=== PATIENT | male | born 1960 | race Two or more races ===

== ENCOUNTER 2021-01-21 08:05 | Inpatient (IN) | payer BC, MEDICARE ==
[2021-01-21] VITALS (9 sets, daily range): BP systolic 97–126; BP diastolic 47–81
[~2021-01-21] VITALS: Ht 165.1 cm; Wt 103.2 kg
[2021-01-21 08:43] LABS: BASO # 0.1 x10^3/uL (0.0-0.2); BASO % 2 % (0-3); EOS # 0.1 x10^3/uL (0.0-0.7); EOS % 1 % (0-3); HEMATOCRIT 22.1 % (39.0-53.0); LYMPH # 2.3 x10^3/uL (1.0-4.8); LYMPH % 46 % (24-48); MEAN CORPUSCULAR HEMOGLOBIN 22 pg (25-35); MEAN CORPUSCULAR HGB CONC 31 g/dL (31-37); MEAN CORPUSCULAR VOLUME 71 fL (79-100); MONO # 0.4 x10^3/uL (0.0-1.1); MONO % 8 % (0-9); NEUT # 2.1 x10^3/uL (1.8-7.7); NEUT % 42 % (31-73); PLATELET COUNT 195 x10^3/uL (140-400); RED CELL DISTRIBUTION WIDTH 22.9 % (11.5-14.5); WHITE BLOOD COUNT 4.9 x10^3/uL (4.0-11.0)
[2021-01-21 08:46] LABS: HEMOGLOBIN 6.8 g/dL (13.0-17.5)
--- NOTE | 2021-01-21 08:52 | ED.ADGEN ---
Past Medical History Past Medical History: Hypertension Additional Past Medical Histor: ptsd Past Surgical History: Knee Replacement, Other Additional Past Surgical Histo: hernia repair Smoking Status: Never Smoker Alcohol Use: Occasionally Drug Use: None General Adult EDM: Chief Complaint: NEURO SYMPTOMS/DEFICITS HPI: HPI: Patient is a 60 year old male coming in for lightheadedness right-sided numbness and weakness. Also complaining of lightheadedness. Last known normal was 2200 last night. About 10 hours prior to arrival. Patient states he drank alcohol last night but denies any drugs. Patient states he drinks every 3 to 4 days. Had a uncomplicated left total knee replacement done in September. Patient states he had a history of hypertension and does really sleep and losing weight and not had any problems anymore Review of Systems: Review of Systems: All other systems within normal limits except for as noted in the HPI Current Medications: Current Medications Medications (Trade) Dose Ordered Sig/Bharat Start Time Stop Time Status Last Admin Dose Admin Info (CONTRAST GIVEN -- Rx MONITORING) 1 each PRN DAILY PRN 01/21/21 09:00 01/23/21 08:59 Iohexol (Omnipaque 300 Mg/ml) 75 ml 1X ONCE 01/21/21 09:00 01/21/21 09:01 DC Allergies: Allergies: Allergies Coded Allergies Type Severity Reaction Last Updated Verified No Known Drug Allergies 12/04/13 No Physical Exam: PE: Constitutional: Well developed, well nourished, no acute distress, non-toxic appearance. [] HENT: Normocephalic, atraumatic, bilateral external ears normal, nose normal. [] Eyes: PERRLA, conjunctiva normal, no discharge. [] Neck: No rigidity, supple, no stridor. [] Cardiovascular: Regular rate and rhythm, brisk cap refill [] Lungs & Thorax: Non labored symmetric respirations, no tachypnea or respiratory distress [] Abdomen: Soft, nondistended. Skin: Warm, dry, no erythema, no rash. [] Back: Unremarkable Extremities: No deformities, range of motion grossly intact, no lower extremity edema [] Neurologic: Alert and oriented X 3, decreased sensation on right upper and lower extremity. Slight droop of right lip with smiling. No pronator drift, tremors with holding hands up. Psychologic: Affect normal, judgement normal, mood normal. [] Current Patient Data: Labs: Laboratory Tests Test 01/21/21 08:12 01/21/21 08:20 01/21/21 08:45 01/21/21 09:35 Glucose (Fingerstick) 204 mg/dL (70-99) H White Blood Count 4.9 x10^3/uL (4.0-11.0) Red Blood Count 3.10 x10^6/uL (4.30-5.70) L Hemoglobin 6.8 g/dL (13.0-17.5) *L Hematocrit 22.1 % (39.0-53.0) L Mean Corpuscular Volume 71 fL (79-100) L Mean Corpuscular Hemoglobin 22 pg (25-35) L Mean Corpuscular Hemoglobin Concent 31 g/dL (31-37) Red Cell Distribution Width 22.9 % (11.5-14.5) H Platelet Count 195 x10^3/uL (140-400) Neutrophils (%) (Auto) 42 % (31-73) Lymphocytes (%) (Auto) 46 % (24-48) Monocytes (%) (Auto) 8 % (0-9) Eosinophils (%) (Auto) 1 % (0-3) Basophils (%) (Auto) 2 % (0-3) Neutrophils # (Auto) 2.1 x10^3/uL (1.8-7.7) Lymphocytes # (Auto) 2.3 x10^3/uL (1.0-4.8) Monocytes # (Auto) 0.4 x10^3/uL (0.0-1.1) Eosinophils # (Auto) 0.1 x10^3/uL (0.0-0.7) Basophils # (Auto) 0.1 x10^3/uL (0.0-0.2) Platelet Estimate Adequate (ADEQUATE) Anisocytosis Slight Prothrombin Time 15.0 SEC (11.7-14.0) H Prothrombin Time INR 1.2 (0.8-1.1) H Activated Partial Thromboplast Time 35 SEC (24-38) Sodium Level 145 mmol/L (136-145) Potassium Level 3.5 mmol/L (3.5-5.1) Chloride Level 105 mmol/L (98-107) Carbon Dioxide Level 26 mmol/L (21-32) Anion Gap 14 (6-14) Blood Urea Nitrogen 4 mg/dL (8-26) L Creatinine 0.9 mg/dL (0.7-1.3) Estimated GFR (Cockcroft-Gault) 86.4 BUN/Creatinine Ratio 4 (6-20) L Glucose Level 189 mg/dL (70-99) H Calcium Level 8.1 mg/dL (8.5-10.1) L Phosphorus Level 3.8 mg/dL (2.6-4.7) Magnesium Level 1.8 mg/dL (1.8-2.4) Total Bilirubin 1.2 mg/dL (0.2-1.0) H Aspartate Amino Transferase (AST) 67 U/L (15-37) H Alanine Aminotransferase (ALT) 43 U/L (16-63) Alkaline Phosphatase 63 U/L (46-116) Troponin I Quantitative < 0.017 ng/mL (0.000-0.055) JV-Ody-G-Type Natriuretic Peptide 52 pg/mL (0-124) Total Protein 8.1 g/dL (6.4-8.2) Albumin 4.1 g/dL (3.4-5.0) Albumin/Globulin Ratio 1.0 (1.0-1.7) Triglycerides Level 87 mg/dL (0-150) Cholesterol Level 154 mg/dL (0-200) LDL Cholesterol, Calculated 93 mg/dL (0-100) VLDL Cholesterol, Calculated 17 mg/dL (0-40) Non-HDL Cholesterol Calculated 110 mg/dL (0-129) HDL Cholesterol 44 mg/dL (40-60) Cholesterol/HDL Ratio 3.5 Ethyl Alcohol Level 340 mg/dL (0-10) H Ammonia 64 mcmol/L (11-34) H Urine Collection Type Unknown Urine Color Yellow Urine Clarity Clear Urine pH 6.0 (<5.0-8.0) Urine Specific [place] 1.025 (1.000-1.030) Urine Protein Negative mg/dL (NEG-TRACE) Urine Glucose (UA) Negative mg/dL (NEG) Urine Ketones (Stick) Negative mg/dL (NEG) Urine Blood Negative (NEG) Urine Nitrite Negative (NEG) Urine Bilirubin Negative (NEG) Urine Urobilinogen Dipstick 1.0 mg/dL (0.2 mg/dL) Urine Leukocyte Esterase Negative (NEG) Urine RBC 0 /HPF (0-2) Urine WBC 0 /HPF (0-4) Urine Squamous Epithelial Cells Occ /LPF Urine Bacteria 0 /HPF (0-FEW) Urine Hyaline Casts Occasional /HPF Urine Mucus Slight /LPF Urine Opiates Screen Neg (NEG) Urine Methadone Screen Neg (NEG) Urine Barbiturates Neg (NEG) Urine Phencyclidine Screen Neg (NEG) Urine Amphetamine/Methamphetamine Neg (NEG) Urine Benzodiazepines Screen Neg (NEG) Urine Cocaine Screen Neg (NEG) Urine Cannabinoids Screen Neg (NEG) Urine Ethyl Alcohol Pos (NEG) Laboratory Tests 01/21/21 08:20 Laboratory Tests 01/21/21 08:20 Vital Signs: Vital Signs Date Time Temp Pulse Resp B/P (MAP) Pulse Ox O2 Delivery O2 Flow Rate FiO2 01/21/21 09:25 97 16 117/65 (82) 91 Nasal Cannula 1.5 01/21/21 08:10 98.5 98.5 EKG: EKG: Sinus tachycardia, heart rate 108 bpm, left axis deviation, no ST ovation depression, no ectopy. [] Heart Score: C/O Chest Pain: No Risk Factors: Risk Factors: DM, Current or recent (<one month) smoker, HTN, HLP, family history of CAD, obesity. Risk Scores: Score 0 - 3: 2.5% MACE over next 6 weeks - Discharge Home Score 4 - 6: 20.3% MACE over next 6 weeks - Admit for Clinical Observation Score 7 - 10: 72.7% MACE over next 6 weeks - Early Invasive Strategies Radiology/Procedures: Radiology/Procedures: [facility] [address] [place], [place] [id number] IMAGING REPORT Signed PATIENT: KT SANCHEZ ACCOUNT: [id number] : 1960 LOCATION: ER AGE: 60 SEX: M EXAM STATUS: REG ER ORD. PHYSICIAN: DEVIKA ROMERO MD REASON: Right side of weakness PROCEDURE: CT ANGIOGRAPHY HEAD AND NECK EXAM: Head CT without contrast; CT angiogram of the head and neck with intravenous contrast. HISTORY: Right-sided weakness. TECHNIQUE: Computed tomographic images of the head were obtained without con trast. CT angiography of the head and neck was performed following the administration of contrast. Three-dimensional images were obtained. *One or more of the following individualized dose reduction techniques were utilized for this examination: 1. Automated exposure control. 2. Adjustment of the mA and/or kV according to patient size. 3. Use of iterative reconstruction technique. COMPARISON: None. FINDINGS: The noncontrast images of the head demonstrate no hemorrhage. There is no mass effect or midline shift. There is no hydrocephalus. The holman-white matter differentiation pattern is intact. The orbits and mastoid air cells are clear. There is no suspicious calvarial lesion. There is a mucous retention cyst within the left maxillary sinus. There are multiple periapical lucencies surrounding maxillary teeth due to dental disease. The angiographic images demonstrate a normal caliber aortic arch and standard arch branching pattern. The carotid bifurcations are widely patent. The internal carotid arteries are widely patent. The vertebral arteries are codominant and widely patent. There is no aneurysm, vascular malformation or suspicious enhancing lesion. There are incidental degenerative changes involving the cervical spine. This results in moderate right foraminal stenosis at C4-C5 and severe left foraminal and mild central canal stenosis at C5-C6. The lung apices are unremarkable. IMPRESSION: 1. No acute intracranial finding. MRI is more sensitive for acute infarction. 2. No evidence of large vessel occlusion or hemodynamically significant stenosis. Findings were discussed with Dr. Romero in the ED at 0850 hours on 01/21/2021. Electronically signed by: Janie Avila MD (01/21/2021 8:51 AM) [id number] DICTATED and SIGNED BY: JANIE AVILA MD DATE: 01/21/21 [id number] [][facility] [address] [place] [address] IMAGING REPORT Signed PATIENT: KT SANCHEZ ACCOUNT: [id number] : 1960 LOCATION: ER AGE: 60 SEX: M EXAM STATUS: REG ER ORD. PHYSICIAN: DEVIKA ROMERO MD REASON: Right side of weakness ED [phone] PROCEDURE: CT CODE STROKE HEAD WO EXAM: Head CT without contrast; CT angiogram of the head and neck with intravenous contrast. HISTORY: Right-sided weakness. TECHNIQUE: Computed tomographic images of the head were obtained without contrast. CT angiography of the head and neck was performed following the administration of contrast. Three-dimensional images were obtained. *One or more of the following individualized dose reduction techniques were utilized for this examination: 1. Automated exposure control. 2. Adjustment of the mA and/or kV according to patient size. 3. Use of iterative reconstruction technique. COMPARISON: None. FINDINGS: The noncontrast images of the head demonstrate no hemorrhage. There is no mass effect or midline shift. There is no hydrocephalus. The holman-white matter differentiation pattern is intact. The orbits and mastoid air cells are clear. There is no suspicious calvarial lesion. There is a mucous retention cyst within the left maxillary sinus. There are multiple periapical lucencies surrounding maxillary teeth due to dental disease. The angiographic images demonstrate a normal caliber aortic arch and standard arch branching pattern. The carotid bifurcations are widely patent. The internal carotid arteries are widely patent. The vertebral arteries are codominant and widely patent. There is no aneurysm, vascular malformation or suspicious enhancing lesion. There are incidental degenerative changes involving the cervical spine. This results in moderate right foraminal stenosis at C4-C5 and severe left foraminal and mild central canal stenosis at C5-C6. The lung apices are unremarkable. IMPRESSION: 1. No acute intracranial finding. MRI is more sensitive for acute infarction. 2. No evidence of large vessel occlusion or hemodynamically significant stenosis. Findings were discussed with Dr. Romero in the ED at 0850 hours on 01/21/2021. Electronically signed by: Janie Avila MD (01/21/2021 8:51 AM) [id number] DICTATED and SIGNED BY: JANIE AVILA MD DATE: 01/21/21 [id number] Course & Med Decision Making: Course & Med Decision Making Pertinent Labs and Imaging studies reviewed. (See chart for details) Discussed patient with Dr. Park, ollie TPA. We will also withhold aspirin due to low hemoglobin until bleeding source identified. [] Dragon Disclaimer: Dragon Disclaimer: This electronic medical record was generated, in whole or in part, using a voice recognition dictation system. Departure Departure Impression: Primary Impression: Hyperammonemia Additional Impressions: Alcohol intoxication Microcytic anemia Disposition: ADMITTED INPATIENT Admitting Physician: DASHA Condition: GUARDED Referrals: UNKNOWN PCP NAME (PCP) Problem Qualifiers DEVIKA ROMERO MD Jan 21, 2021 08:52
--- NOTE | 2021-01-21 08:53 | RAD ---
EXAM: Head CT without contrast; CT angiogram of the head and neck with intravenous contrast. HISTORY: Right-sided weakness. TECHNIQUE: Computed tomographic images of the head were obtained without contrast. CT angiography of the head and neck was performed following the administration of contrast. Three-dimensional images we re obtained. *One or more of the following individualized dose reduction techniques were utilized for this examina tion: 1. Automated exposure control. 2. Adjustment of the mA and/or kV according to patient size. 3. Use of iterative reconstruction technique. COMPARISON: None. FINDINGS: The noncontrast images of the head demonstrate no hemorrhage. There is no mass effect or mi dline shift. There is no hydrocephalus. The holman-white matter differentiation pattern is intact. The orbits and mastoid air cells are clear. There is no suspicious calvarial lesion. There is a mucous re tention cyst within the left maxillary sinus. There are multiple periapical lucencies surrounding max illary teeth due to dental disease. The angiographic images demonstrate a normal caliber aortic arch and standard arch branching pattern. The carotid bifurcations are widely patent. The internal carotid arteries are widely patent. The hayden tebral arteries are codominant and widely patent. There is no aneurysm, vascular malformation or susp icious enhancing lesion. There are incidental degenerative changes involving the cervical spine. This results in moderate righ t foraminal stenosis at C4-C5 and severe left foraminal and mild central canal stenosis at C5-C6. The lung apices are unremarkable. IMPRESSION: 1. No acute intracranial finding. MRI is more sensitive for acute infarction. 2. No evidence of large vessel occlusion or hemodynamically significant stenosis. Findings were discussed with Dr. Heaton in the ED at 0850 hours on 01/21/2021. Electronically signed by: Janie Plascencia MD (01/21/2021 8:51 AM) [id number]
[2021-01-21] MEDS ORDERED: IOHEXOL 300 MG/ML 100ML VIAL. IV ONE (09:00)
[2021-01-21] MEDS ORDERED: CONTRAST GIVEN. MC PRN (09:00)
[2021-01-21 09:33] LABS: CALCIUM 8.1 mg/dL (8.5-10.1); CREATININE 0.9 mg/dL (0.7-1.3); GFR 86.4; POTASSIUM 3.5 mmol/L (3.5-5.1)
[2021-01-21 09:37] LABS: ALBUMIN 4.1 g/dL (3.4-5.0); MAGNESIUM 1.8 mg/dL (1.8-2.4); PHOSPHORUS 3.8 mg/dL (2.6-4.7); TOTAL BILIRUBIN 1.2 mg/dL (0.2-1.0); TOTAL PROTEIN 8.1 g/dL (6.4-8.2)
[2021-01-21 09:45] LABS: BILIRUBIN,URINE NEGATIVE (NEG); CLARITY,URINE CLEAR; COLOR,URINE YELLOW; NITRITE,URINE NEGATIVE (NEG); PROTEIN,URINE NEGATIVE (NEG-TRACE)
[2021-01-21 09:52] LABS: AMPHETAMINE/METHAMPHETAMINE NEG (NEG); BARBITURATES NEG (NEG); BENZODIAZEPINES NEG (NEG); CANNABINOIDS NEG (NEG); COCAINE NEG (NEG); METHADONE NEG (NEG); OPIATES NEG (NEG); PHENCYCLIDINE NEG (NEG)
[2021-01-21] MEDS ORDERED: MULTIVIT INFUSN,ADULT 4,VIT K 10 ML, THIAMINE INJ 100 MG, FOLIC ACID INJ 1 MG in IV NOR... IV ONE (10:00)
[2021-01-21 10:01] LABS: BACTERIA,URINE 0 /HPF (0-FEW); HYALINE CASTS, URINE OCCASIONAL /HPF; RBC,URINE 0 /HPF (0-2); WBC,URINE 0 /HPF (0-4)
[2021-01-21] MEDS ORDERED: ACETAMINOPHEN 325 MG TABLET. PO PRN ×2 (10:30→12:15)
[2021-01-21 10:40] LABS: FECAL OB PT NEGATIVE (NEG)
[2021-01-21 10:56] LABS: ANISOCYTOSIS SLIGHT; PLT ESTIMATE ADEQUATE (ADEQUATE)
[2021-01-21] MEDS ORDERED: IV NORMAL SALINE 1000ML BAG 1,000 ML IV ONE (12:15)
[2021-01-21 12:34] LABS: CHOLESTEROL/HDL RATIO 3.5
--- NOTE | 2021-01-21 15:04 | PDOC2 ---
NEUROLOGY CONSULT Date of Service DOS: DATE: 01/21/21 TIME: 14:59 Reason for Consult Reason for Consult: Stroke Referring Physician Referring Physician: Dr. Salgado Source Source: Caregiver (Girlfriend), Chart review, Patient History of Present Illness History of Present Illness The patient is a 60-year-old right-handed male who woke up this morning with light headedness and right numbness and weakness. Last known normal was 2200 last night. He drinks alcohol every day. He has never had a stroke, seizure, or head injury. 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, no tobacco or street drugs, has a girlfriend/significant other Current Medications Current Medications Current Medications Iohexol (Omnipaque 300 Mg/ml) 75 ml 1X ONCE IV ; Start 01/21/21 at 09:00; Stop 01/21/21 at 09:01; Status DC Info (CONTRAST GIVEN -- Rx MONITORING) 1 each PRN DAILY PRN MC SEE COMMENTS; Start 01/21/21 at 09:00; Stop 01/23/21 at 08:59 Multivitamins 10 ml/Thiamine HCl 100 mg/Folic Acid 1 mg/Sodium Chloride 1,011.2 ml @ 1,000.088 mls/hr 1X ONCE IV Last administered on 01/21/21at 10:23; Start 01/21/21 at 10:00; Stop 01/21/21 at 11:00; Status DC Ondansetron HCl (Zofran) 4 mg PRN Q8HRS PRN IV NAUSEA/VOMITING; Start 01/21/21 at 10:30; Stop 01/22/21 at 10:29 Acetaminophen (Tylenol) 650 mg PRN Q4HRS PRN PO FEVER > 100.3'F; Start 01/21/21 at 10:30; Stop 01/21/21 at 12:14; Status DC Lorazepam (Ativan Inj) 2 mg 1X ONCE IVP ; Start 01/21/21 at 12:15; Stop 01/21/21 at 12:16; Status DC Sodium Chloride 1,000 ml @ 1,000 mls/hr 1X ONCE IV Last administered on 01/21/21at 12:34; Start 01/21/21 at 12:15; Stop 01/21/21 at 13:14; Status DC Multivitamins (Thera M Plus) 1 tab DAILY PO ; Start 01/22/21 at 09:00 Folic Acid (Folic Acid) 1 mg DAILY PO ; Start 01/22/21 at 09:00 Thiamine Mononitrate (Vitamin B-1) 100 mg DAILY PO ; Start 01/22/21 at 09:00 Lorazepam (Ativan) 4 mg PRN Q1HR PRN PO For CIWA 8-14; Start 01/21/21 at 12:15 Lorazepam (Ativan Inj) 2 mg PRN Q1HR PRN IV For CIWA 8-14; Start 01/21/21 at 12:15 Acetaminophen (Tylenol) 650 mg PRN Q6HRS PRN PO MILD PAIN / TEMP > 100.3'F; Start 01/21/21 at 12:15 Allergies Allergies: Coded Allergies: No Known Drug Allergies (Unverified , 12/04/13) ROS Review of System Negative for fever, chills, weight loss, shortness of breath, chest pain, indigestion, hematochezia, melena, and dysuria. Full 14-point review of systems is negative. Physical Exam Physical Examination General: Well-developed, well-nourished male in no acute distress HEENT: Normocephalic andatraumatic. Temporal arteriespulsatile and nontender. Neck: Supple without bruit, no meningismus Musculoskeletal: Stability:see neurologic. Gait exam:see neurologic. Tone:see neurologic.Strength:see neurologic. Neurological: Mental Status:intact, orientation, memory, attention span/concentration, language, fund of knowledge normal. Cranial Nerves:Pupils equal and reactive to light, extraocular movements areintact, visual matamoros are full to confrontation. Facial sensation is normal. There is a slight right central facial weakness. Vestibulo-ocular reflex is intact. Palate elevates and tongue protrudes in midline. All other cranial related problems are negative except as mentioned before.Reflexes:2+ and symmetric with flexor plantar responses. Motor:4/5 right hemiparesis with normal tone and bulk. Coordination:Finger- nose finger and [id number] testing are normal. Rapid alternating movements and fine finger movements are intact. Gait:Normal, including tandem. Sensory:Normal pinprick, vibration, light touch, proprioception. Vitals VITALS Vital Signs Date Time Temp Pulse Resp B/P (MAP) Pulse Ox O2 Delivery O2 Flow Rate FiO2 01/21/21 11:12 98.6 108 24 97/53 98.6 01/21/21 10:31 96 Nasal Cannula 1.5 Labs Labs Laboratory Tests Test 01/21/21 08:12 01/21/21 08:20 01/21/21 08:45 01/21/21 09:35 Glucose (Fingerstick) 204 mg/dL (70-99) White Blood Count 4.9 x10^3/uL (4.0-11.0) Red Blood Count 3.10 x10^6/uL (4.30-5.70) Hemoglobin 6.8 g/dL (13.0-17.5) Hematocrit 22.1 % (39.0-53.0) Mean Corpuscular Volume 71 fL (79-100) Mean Corpuscular Hemoglobin 22 pg (25-35) Mean Corpuscular Hemoglobin Concent 31 g/dL (31-37) Red Cell Distribution Width 22.9 % (11.5-14.5) Platelet Count 195 x10^3/uL (140-400) Neutrophils (%) (Auto) 42 % (31-73) Lymphocytes (%) (Auto) 46 % (24-48) Monocytes (%) (Auto) 8 % (0-9) Eosinophils (%) (Auto) 1 % (0-3) Basophils (%) (Auto) 2 % (0-3) Neutrophils # (Auto) 2.1 x10^3/uL (1.8-7.7) Lymphocytes # (Auto) 2.3 x10^3/uL (1.0-4.8) Monocytes # (Auto) 0.4 x10^3/uL (0.0-1.1) Eosinophils # (Auto) 0.1 x10^3/uL (0.0-0.7) Basophils # (Auto) 0.1 x10^3/uL (0.0-0.2) Platelet Estimate Adequate (ADEQUATE) Anisocytosis Slight Prothrombin Time 15.0 SEC (11.7-14.0) Prothromb Time International Ratio 1.2 (0.8-1.1) Activated Partial Thromboplast Time 35 SEC (24-38) Sodium Level 145 mmol/L (136-145) Potassium Level 3.5 mmol/L (3.5-5.1) Chloride Level 105 mmol/L (98-107) Carbon Dioxide Level 26 mmol/L (21-32) Anion Gap 14 (6-14) Blood Urea Nitrogen 4 mg/dL (8-26) Creatinine 0.9 mg/dL (0.7-1.3) Estimated GFR (Cockcroft-Gault) 86.4 BUN/Creatinine Ratio 4 (6-20) Glucose Level 189 mg/dL (70-99) Calcium Level 8.1 mg/dL (8.5-10.1) Phosphorus Level 3.8 mg/dL (2.6-4.7) Magnesium Level 1.8 mg/dL (1.8-2.4) Total Bilirubin 1.2 mg/dL (0.2-1.0) Aspartate Amino Transf (AST/SGOT) 67 U/L (15-37) Alanine Aminotransferase (ALT/SGPT) 43 U/L (16-63) Alkaline Phosphatase 63 U/L (46-116) Troponin I Quantitative < 0.017 ng/mL (0.000-0.055) WP-Dny-D-Type Natriuretic Peptide 52 pg/mL (0-124) Total Protein 8.1 g/dL (6.4-8.2) Albumin 4.1 g/dL (3.4-5.0) Albumin/Globulin Ratio 1.0 (1.0-1.7) Triglycerides Level 87 mg/dL (0-150) Cholesterol Level 154 mg/dL (0-200) LDL Cholesterol, Calculated 93 mg/dL (0-100) VLDL Cholesterol, Calculated 17 mg/dL (0-40) Non-HDL Cholesterol Calculated 110 mg/dL (0-129) HDL Cholesterol 44 mg/dL (40-60) Cholesterol/HDL Ratio 3.5 Ethyl Alcohol Level 340 mg/dL (0-10) Ammonia 64 mcmol/L (11-34) Urine Collection Type Unknown Urine Color Yellow Urine Clarity Clear Urine pH 6.0 (<5.0-8.0) Urine Specific [place] 1.025 (1.000-1.030) Urine Protein Negative mg/dL (NEG-TRACE) Urine Glucose (UA) Negative mg/dL (NEG) Urine Ketones (Stick) Negative mg/dL (NEG) Urine Blood Negative (NEG) Urine Nitrite Negative (NEG) Urine Bilirubin Negative (NEG) Urine Urobilinogen Dipstick 1.0 mg/dL (0.2 mg/dL) Urine Leukocyte Esterase Negative (NEG) Urine RBC 0 /HPF (0-2) Urine WBC 0 /HPF (0-4) Urine Squamous Epithelial Cells Occ /LPF Urine Bacteria 0 /HPF (0-FEW) Urine Hyaline Casts Occasional /HPF Urine Mucus Slight /LPF Urine Opiates Screen Neg (NEG) Urine Methadone Screen Neg (NEG) Urine Barbiturates Neg (NEG) Urine Phencyclidine Screen Neg (NEG) Urine Amphetamine/Methamphetamine Neg (NEG) Urine Benzodiazepines Screen Neg (NEG) Urine Cocaine Screen Neg (NEG) Urine Cannabinoids Screen Neg (NEG) Urine Ethyl Alcohol Pos (NEG) Test 01/21/21 10:25 01/21/21 11:30 01/21/21 13:30 Stool Occult Blood Negative (NEG) Fibrinogen 246 mg/dL (200-440) Troponin I Quantitative < 0.017 ng/mL (0.000-0.055) Laboratory Tests Test 01/21/21 08:12 01/21/21 08:20 01/21/21 08:45 01/21/21 09:35 Glucose (Fingerstick) 204 mg/dL (70-99) White Blood Count 4.9 x10^3/uL (4.0-11.0) Red Blood Count 3.10 x10^6/uL (4.30-5.70) Hemoglobin 6.8 g/dL (13.0-17.5) Hematocrit 22.1 % (39.0-53.0) Mean Corpuscular Volume 71 fL (79-100) Mean Corpuscular Hemoglobin 22 pg (25-35) Mean Corpuscular Hemoglobin Concent 31 g/dL (31-37) Red Cell Distribution Width 22.9 % (11.5-14.5) Platelet Count 195 x10^3/uL (140-400) Neutrophils (%) (Auto) 42 % (31-73) Lymphocytes (%) (Auto) 46 % (24-48) Monocytes (%) (Auto) 8 % (0-9) Eosinophils (%) (Auto) 1 % (0-3) Basophils (%) (Auto) 2 % (0-3) Neutrophils # (Auto) 2.1 x10^3/uL (1.8-7.7) Lymphocytes # (Auto) 2.3 x10^3/uL (1.0-4.8) Monocytes # (Auto) 0.4 x10^3/uL (0.0-1.1) Eosinophils # (Auto) 0.1 x10^3/uL (0.0-0.7) Basophils # (Auto) 0.1 x10^3/uL (0.0-0.2) Platelet Estimate Adequate (ADEQUATE) Anisocytosis Slight Prothrombin Time 15.0 SEC (11.7-14.0) Prothromb Time International Ratio 1.2 (0.8-1.1) Activated Partial Thromboplast Time 35 SEC (24-38) Sodium Level 145 mmol/L (136-145) Potassium Level 3.5 mmol/L (3.5-5.1) Chloride Level 105 mmol/L (98-107) Carbon Dioxide Level 26 mmol/L (21-32) Anion Gap 14 (6-14) Blood Urea Nitrogen 4 mg/dL (8-26) Creatinine 0.9 mg/dL (0.7-1.3) Estimated GFR (Cockcroft-Gault) 86.4 BUN/Creatinine Ratio 4 (6-20) Glucose Level 189 mg/dL (70-99) Calcium Level 8.1 mg/dL (8.5-10.1) Phosphorus Level 3.8 mg/dL (2.6-4.7) Magnesium Level 1.8 mg/dL (1.8-2.4) Total Bilirubin 1.2 mg/dL (0.2-1.0) Aspartate Amino Transf (AST/SGOT) 67 U/L (15-37) Alanine Aminotransferase (ALT/SGPT) 43 U/L (16-63) Alkaline Phosphatase 63 U/L (46-116) Troponin I Quantitative < 0.017 ng/mL (0.000-0.055) GH-Uda-L-Type Natriuretic Peptide 52 pg/mL (0-124) Total Protein 8.1 g/dL (6.4-8.2) Albumin 4.1 g/dL (3.4-5.0) Albumin/Globulin Ratio 1.0 (1.0-1.7) Triglycerides Level 87 mg/dL (0-150) Cholesterol Level 154 mg/dL (0-200) LDL Cholesterol, Calculated 93 mg/dL (0-100) VLDL Cholesterol, Calculated 17 mg/dL (0-40) Non-HDL Cholesterol Calculated 110 mg/dL (0-129) HDL Cholesterol 44 mg/dL (40-60) Cholesterol/HDL Ratio 3.5 Ethyl Alcohol Level 340 mg/dL (0-10) Ammonia 64 mcmol/L (11-34) Urine Collection Type Unknown Urine Color Yellow Urine Clarity Clear Urine pH 6.0 (<5.0-8.0) Urine Specific [place] 1.025 (1.000-1.030) Urine Protein Negative mg/dL (NEG-TRACE) Urine Glucose (UA) Negative mg/dL (NEG) Urine Ketones (Stick) Negative mg/dL (NEG) Urine Blood Negative (NEG) Urine Nitrite Negative (NEG) Urine Bilirubin Negative (NEG) Urine Urobilinogen Dipstick 1.0 mg/dL (0.2 mg/dL) Urine Leukocyte Esterase Negative (NEG) Urine RBC 0 /HPF (0-2) Urine WBC 0 /HPF (0-4) Urine Squamous Epithelial Cells Occ /LPF Urine Bacteria 0 /HPF (0-FEW) Urine Hyaline Casts Occasional /HPF Urine Mucus Slight /LPF Urine Opiates Screen Neg (NEG) Urine Methadone Screen Neg (NEG) Urine Barbiturates Neg (NEG) Urine Phencyclidine Screen Neg (NEG) Urine Amphetamine/Methamphetamine Neg (NEG) Urine Benzodiazepines Screen Neg (NEG) Urine Cocaine Screen Neg (NEG) Urine Cannabinoids Screen Neg (NEG) Urine Ethyl Alcohol Pos (NEG) Test 01/21/21 10:25 01/21/21 11:30 01/21/21 13:30 Stool Occult Blood Negative (NEG) Fibrinogen 246 mg/dL (200-440) Troponin I Quantitative < 0.017 ng/mL (0.000-0.055) Images Images Head CT without contrast; CT angiogram of the head and neck with intravenous contrast. HISTORY: Right-sided weakness. TECHNIQUE: Computed tomographic images of the head were obtained without contrast. CT angiography of the head and neck was performed following the admin istration of contrast. Three-dimensional images were obtained. *One or more of the following individualized dose reduction techniques were utilized for this examination: 1. Automated exposure control. 2. Adjustment of the mA and/or kV according to patient size. 3. Use of iterative reconstruction technique. COMPARISON: None. FINDINGS: The noncontrast images of the head demonstrate no hemorrhage. There is no mass effect or midline shift. There is no hydrocephalus. The holman-white matter differentiation pattern is intact. The orbits and mastoid air cells are clear. There is no suspicious calvarial lesion. There is a mucous retention cyst within the left maxillary sinus. There are multiple periapical lucencies surrounding maxillary teeth due to dental disease. The angiographic images demonstrate a normal caliber aortic arch and standard arch branching pattern. The carotid bifurcations are widely patent. The internal carotid arteries are widely patent. The vertebral arteries are codominant and widely patent. There is no aneurysm, vascular malformation or suspicious enhancing lesion. There are incidental degenerative changes involving the cervical spine. This results in moderate right foraminal stenosis at C4-C5 and severe left foraminal and mild central canal stenosis at C5-C6. The lung apices are unremarkable. IMPRESSION: 1. No acute intracranial finding. MRI is more sensitive for acute infarction. 2. No evidence of large vessel occlusion or hemodynamically significant stenosis. Assessment/Plan Assessment/Plan Impression: Left hemispheric stroke, clinically small vessel Hypertension Severe anemia Recommendations: MRI of the brain Hold antiplatelet agents and anticoagulants pending work-up of the anemia Anemia work-up per internal medicine. Keep in mind hematological disorders that can cause strokes Rehabilitation modalities Check lipids, start statin depending on results Discussed with patient and his girlfriend Thank you for letting me help with the patient's care. NAN HERNANDEZ MD Jan 21, 2021 15:04
--- NOTE | 2021-01-21 15:40 | EKG ---
[facility] [address] [place] [address] Test Date: 2021-01-21 Test Time: 08:15:21 Pat Name: KT SANCHEZ Department: Room: Gender: M [employer]: : 1960 Requested By: DEVIKA ROMERO Order Number: [id number] Reading MD: Measurements Intervals [place] Rate: 108 P: -90 IL: 102 QRS: -10 QRSD: 90 T: -4 QT: 354 QTc: 478 Interpretive Statements SINUS TACHYCARDIA LEFTWARD AXIS OTHERWISE NORMAL ECG RI6.02 No previous ECG available for comparison
--- NOTE | 2021-01-21 16:12 | RAD ---
EXAM: Brain MRI without contrast. HISTORY: Cerebral infarction. Right-sided weakness. TECHNIQUE: Multiplanar, multisequence magnetic resonance imaging of the brain was performed without c ontrast. COMPARISON: 01/21/2021 FINDINGS: There is no restricted diffusion to suggest acute or subacute infarction. There is no susce ptibility effect to suggest hemorrhage. There is no mass effect or midline shift. There is no hydroce phalus. No suspicious white matter lesion is seen. The orbits are unremarkable. There are small left maxillary sinus mucous retention cysts. There is mild paranasal sinus because of thickening. The mast oid air cells are clear. There are normal flow voids within the cerebral vessels. There is no suspici ous calvarial lesion. IMPRESSION: No acute intracranial finding. Electronically signed by: Janie Plascencia MD (01/21/2021 4:10 PM) [id number]
[2021-01-21] MEDS: ONDANSETRON PF 4 MG/2 ML VIAL. IV PRN (16:24)
[2021-01-21] MEDS ORDERED: DULO20CA PO ×2 (16:30→20:43)
[2021-01-21] MEDS ORDERED: ZOLPIDEM 5 MG TABLET. PO PRN (17:30)
--- NOTE | 2021-01-21 17:41 | PDOC1 ---
History and Physical Date of Admission Date of Admission DATE: 01/21/21 TIME: 17:17 History of Present Illness History of Present Illness Mr. Ashton, is a 60 year old male admit with right hand and arm weakness with lightheadedness. his right arm was newly numb this AM, and he feels it is improving slowly. Patient states he drank alcohol last night, drinks every few days. He has HTn only, and feels normally well. He had some anxiety in the ER and tremor and wanted his home meds of ativan restarted, which he reported as a home med . he follows with a psychiatrist on the [place] side, anxiety, and he is retired from Past Medical History Cardiovascular: HTN GI: Other (Colon polyp) Psych: Other (PTSD) Past Surgical History Past Surgical History: Hernia Repair, Total knee replacement (Left) Social History Smoke: No ALCOHOL: heavy Drugs: None Current Problem List Problem List Problems Medical Problems: (1) Alcohol intoxication Status: Acute (2) Hyperammonemia Status: Acute (3) Microcytic anemia Status: Acute Current Medications Current Medications Current Medications Iohexol (Omnipaque 300 Mg/ml) 75 ml 1X ONCE IV ; Start 01/21/21 at 09:00; Stop 01/21/21 at 09:01; Status DC Info (CONTRAST GIVEN -- Rx MONITORING) 1 each PRN DAILY PRN MC SEE COMMENTS; Start 01/21/21 at 09:00; Stop 01/23/21 at 08:59 Multivitamins 10 ml/Thiamine HCl 100 mg/Folic Acid 1 mg/Sodium Chloride 1,011.2 ml @ 1,000.088 mls/hr 1X ONCE IV Last administered on 01/21/21at 10:23; Start 01/21/21 at 10:00; Stop 01/21/21 at 11:00; Status DC Ondansetron HCl (Zofran) 4 mg PRN Q8HRS PRN IV NAUSEA/VOMITING Last administered on 01/21/21at 16:24; Start 01/21/21 at 10:30; Stop 01/22/21 at 10:29 Acetaminophen (Tylenol) 650 mg PRN Q4HRS PRN PO FEVER > 100.3'F; Start 01/21/21 at 10:30; Stop 01/21/21 at 12:14; Status DC Lorazepam (Ativan Inj) 2 mg 1X ONCE IVP ; Start 01/21/21 at 12:15; Stop 01/21/21 at 12:16; Status DC Sodium Chloride 1,000 ml @ 1,000 mls/hr 1X ONCE IV Last administered on 01/21/21at 12:34; Start 01/21/21 at 12:15; Stop 01/21/21 at 13:14; Status DC Multivitamins (Thera M Plus) 1 tab DAILY PO ; Start 01/22/21 at 09:00 Folic Acid (Folic Acid) 1 mg DAILY PO ; Start 01/22/21 at 09:00 Thiamine Mononitrate (Vitamin B-1) 100 mg DAILY PO ; Start 01/22/21 at 09:00 Lorazepam (Ativan) 4 mg PRN Q1HR PRN PO For CIWA 8-14; Start 01/21/21 at 12:15 Lorazepam (Ativan Inj) 2 mg PRN Q1HR PRN IV For CIWA 8-14; Start 01/21/21 at 12:15 Acetaminophen (Tylenol) 650 mg PRN Q6HRS PRN PO MILD PAIN / TEMP > 100.3'F; Start 01/21/21 at 12:15 Active Scripts Active Reported Cymbalta (Duloxetine Hcl) 20 Mg Capsule.dr 20 Mg PO DAILY Allergies Allergies: Coded Allergies: No Known Drug Allergies (Unverified , 12/04/13) ROS General: No: Chills, Night Sweats, Fatigue, Malaise, Appetite, Other PSYCHOLOGICAL ROS: No: Anxiety, Behavioral Disorder, Concentration difficultie, Decreased libido, Depression, Disorientation, Hallucinations, Hostility, Ir ritablity, Memory difficulties, Mood Swings, Obsessive thoughts, Physical abuse, Sexual abuse, Sleep disturbances, Suicidal ideation, Other Eyes: No Blurry vision, No Decreased vision, No Double vision, No Dry eyes, No Excessive tearing, No Eye Pain, No Itchy Eyes, No Loss of vision, No Photophobia, No Scotomata, No Uses contacts, No Uses glasses, No Other HEENT: No: Heacaches, Visual Changes, Hearing change, Nasal congestion, Nasal discharge, Oral lesions, Sinus pain, Sore Throat, Epistaxis, Sneezing, Snoring, Tinnitus, Vertigo, Vocal changes, Other Respiratory: No: Cough, Hemoptysis, Orthopnea, Pleuritic Pain, Shortness of breath, SOB with excertion, Sputum Changes, Stridor, Tachypnea, Wheezing, Other Cardiovascular: No Chest Pain, No Palpitations, No Orthopnea, No Paroxysmal Noc. Dyspnea, No Edema, No Lt Headedness, No Other Gastrointestinal: Yes Nausea; No Vomiting, No Abdominal Pain, No Diarrhea, No Constipation, No Melena, No Hematochezia, No Other Genitourinary: No Dysuria, No Frequency, No Incontinence, No Hematuria, No Retention, No Discharge, No Urgency, No Pain, No Flank Pain, No Other, No , No , No , No , No , No , No Musculoskeletal: Yes Muscular Weakness; No Gait Disturbance, No Joint Pain, No Joint Stiffness, No Joint Swelling, No Muscle Pain, No Pain In:, No Swelling In:, No Other Neurological: Yes Numbness/Tingling; No Behavorial Changes, No Bowel/Bladder ControlChng, No Confusion, No Dizziness, No Gait Disturbance, No Headaches, No Impaired Coord/balance, No Memory Loss, No Seizures, No Speech Problems, No Tremors, No Visual Changes, No Weakness, No Other Skin: Yes Dry Skin; No Eczema, No Hair Changes, No Lumps, No Mole Changes, No Mottling, No Nail Changes, No Pruritus, No Rash, No Skin Lesion Changes, No Other, No Acne Physical Exam General: Alert, Oriented X3, Cooperative, No acute distress HEENT: Atraumatic, PERRLA, Mucous membr. moist/pink Lungs: Clear to auscultation Heart: no gallops, no murmurs Extremities: No cyanosis, No edema, Normal pulses Skin: No rashes, No significant lesion Neuro: Normal gait, Normal tone, Sensation intact Psych/Mental Status: Mental status NL, Mood NL Vitals Vitals Vital Signs Date Time Temp Pulse Resp B/P (MAP) Pulse Ox O2 Delivery O2 Flow Rate FiO2 01/21/21 16:43 Nasal Cannula 1.5 01/21/21 14:00 98 25 115/56 (75) 97 01/21/21 11:12 98.6 98.6 Labs Labs Laboratory Tests Test 01/21/21 08:12 01/21/21 08:20 01/21/21 08:45 01/21/21 09:35 Glucose (Fingerstick) 204 mg/dL (70-99) White Blood Count 4.9 x10^3/uL (4.0-11.0) Red Blood Count 3.10 x10^6/uL (4.30-5.70) Hemoglobin 6.8 g/dL (13.0-17.5) Hematocrit 22.1 % (39.0-53.0) Mean Corpuscular Volume 71 fL (79-100) Mean Corpuscular Hemoglobin 22 pg (25-35) Mean Corpuscular Hemoglobin Concent 31 g/dL (31-37) Red Cell Distribution Width 22.9 % (11.5-14.5) Platelet Count 195 x10^3/uL (140-400) Neutrophils (%) (Auto) 42 % (31-73) Lymphocytes (%) (Auto) 46 % (24-48) Monocytes (%) (Auto) 8 % (0-9) Eosinophils (%) (Auto) 1 % (0-3) Basophils (%) (Auto) 2 % (0-3) Neutrophils # (Auto) 2.1 x10^3/uL (1.8-7.7) Lymphocytes # (Auto) 2.3 x10^3/uL (1.0-4.8) Monocytes # (Auto) 0.4 x10^3/uL (0.0-1.1) Eosinophils # (Auto) 0.1 x10^3/uL (0.0-0.7) Basophils # (Auto) 0.1 x10^3/uL (0.0-0.2) Platelet Estimate Adequate (ADEQUATE) Anisocytosis Slight Prothrombin Time 15.0 SEC (11.7-14.0) Prothromb Time International Ratio 1.2 (0.8-1.1) Activated Partial Thromboplast Time 35 SEC (24-38) Sodium Level 145 mmol/L (136-145) Potassium Level 3.5 mmol/L (3.5-5.1) Chloride Level 105 mmol/L (98-107) Carbon Dioxide Level 26 mmol/L (21-32) Anion Gap 14 (6-14) Blood Urea Nitrogen 4 mg/dL (8-26) Creatinine 0.9 mg/dL (0.7-1.3) Estimated GFR (Cockcroft-Gault) 86.4 BUN/Creatinine Ratio 4 (6-20) Glucose Level 189 mg/dL (70-99) Calcium Level 8.1 mg/dL (8.5-10.1) Phosphorus Level 3.8 mg/dL (2.6-4.7) Magnesium Level 1.8 mg/dL (1.8-2.4) Total Bilirubin 1.2 mg/dL (0.2-1.0) Aspartate Amino Transf (AST/SGOT) 67 U/L (15-37) Alanine Aminotransferase (ALT/SGPT) 43 U/L (16-63) Alkaline Phosphatase 63 U/L (46-116) Troponin I Quantitative < 0.017 ng/mL (0.000-0.055) NI-Ath-N-Type Natriuretic Peptide 52 pg/mL (0-124) Total Protein 8.1 g/dL (6.4-8.2) Albumin 4.1 g/dL (3.4-5.0) Albumin/Globulin Ratio 1.0 (1.0-1.7) Triglycerides Level 87 mg/dL (0-150) Cholesterol Level 154 mg/dL (0-200) LDL Cholesterol, Calculated 93 mg/dL (0-100) VLDL Cholesterol, Calculated 17 mg/dL (0-40) Non-HDL Cholesterol Calculated 110 mg/dL (0-129) HDL Cholesterol 44 mg/dL (40-60) Cholesterol/HDL Ratio 3.5 Ethyl Alcohol Level 340 mg/dL (0-10) Ammonia 64 mcmol/L (11-34) Urine Collection Type Unknown Urine Color Yellow Urine Clarity Clear Urine pH 6.0 (<5.0-8.0) Urine Specific [place] 1.025 (1.000-1.030) Urine Protein Negative mg/dL (NEG-TRACE) Urine Glucose (UA) Negative mg/dL (NEG) Urine Ketones (Stick) Negative mg/dL (NEG) Urine Blood Negative (NEG) Urine Nitrite Negative (NEG) Urine Bilirubin Negative (NEG) Urine Urobilinogen Dipstick 1.0 mg/dL (0.2 mg/dL) Urine Leukocyte Esterase Negative (NEG) Urine RBC 0 /HPF (0-2) Urine WBC 0 /HPF (0-4) Urine Squamous Epithelial Cells Occ /LPF Urine Bacteria 0 /HPF (0-FEW) Urine Hyaline Casts Occasional /HPF Urine Mucus Slight /LPF Urine Opiates Screen Neg (NEG) Urine Methadone Screen Neg (NEG) Urine Barbiturates Neg (NEG) Urine Phencyclidine Screen Neg (NEG) Urine Amphetamine/Methamphetamine Neg (NEG) Urine Benzodiazepines Screen Neg (NEG) Urine Cocaine Screen Neg (NEG) Urine Cannabinoids Screen Neg (NEG) Urine Ethyl Alcohol Pos (NEG) Test 01/21/21 10:25 01/21/21 11:30 01/21/21 13:30 Stool Occult Blood Negative (NEG) Fibrinogen 246 mg/dL (200-440) Troponin I Quantitative < 0.017 ng/mL (0.000-0.055) Laboratory Tests Test 01/21/21 08:12 01/21/21 08:20 01/21/21 08:45 01/21/21 09:35 Glucose (Fingerstick) 204 mg/dL (70-99) White Blood Count 4.9 x10^3/uL (4.0-11.0) Red Blood Count 3.10 x10^6/uL (4.30-5.70) Hemoglobin 6.8 g/dL (13.0-17.5) Hematocrit 22.1 % (39.0-53.0) Mean Corpuscular Volume 71 fL (79-100) Mean Corpuscular Hemoglobin 22 pg (25-35) Mean Corpuscular Hemoglobin Concent 31 g/dL (31-37) Red Cell Distribution Width 22.9 % (11.5-14.5) Platelet Count 195 x10^3/uL (140-400) Neutrophils (%) (Auto) 42 % (31-73) Lymphocytes (%) (Auto) 46 % (24-48) Monocytes (%) (Auto) 8 % (0-9) Eosinophils (%) (Auto) 1 % (0-3) Basophils (%) (Auto) 2 % (0-3) Neutrophils # (Auto) 2.1 x10^3/uL (1.8-7.7) Lymphocytes # (Auto) 2.3 x10^3/uL (1.0-4.8) Monocytes # (Auto) 0.4 x10^3/uL (0.0-1.1) Eosinophils # (Auto) 0.1 x10^3/uL (0.0-0.7) Basophils # (Auto) 0.1 x10^3/uL (0.0-0.2) Platelet Estimate Adequate (ADEQUATE) Anisocytosis Slight Prothrombin Time 15.0 SEC (11.7-14.0) Prothromb Time International Ratio 1.2 (0.8-1.1) Activated Partial Thromboplast Time 35 SEC (24-38) Sodium Level 145 mmol/L (136-145) Potassium Level 3.5 mmol/L (3.5-5.1) Chloride Level 105 mmol/L (98-107) Carbon Dioxide Level 26 mmol/L (21-32) Anion Gap 14 (6-14) Blood Urea Nitrogen 4 mg/dL (8-26) Creatinine 0.9 mg/dL (0.7-1.3) Estimated GFR (Cockcroft-Gault) 86.4 BUN/Creatinine Ratio 4 (6-20) Glucose Level 189 mg/dL (70-99) Calcium Level 8.1 mg/dL (8.5-10.1) Phosphorus Level 3.8 mg/dL (2.6-4.7) Magnesium Level 1.8 mg/dL (1.8-2.4) Total Bilirubin 1.2 mg/dL (0.2-1.0) Aspartate Amino Transf (AST/SGOT) 67 U/L (15-37) Alanine Aminotransferase (ALT/SGPT) 43 U/L (16-63) Alkaline Phosphatase 63 U/L (46-116) Troponin I Quantitative < 0.017 ng/mL (0.000-0.055) PK-Bsq-N-Type Natriuretic Peptide 52 pg/mL (0-124) Total Protein 8.1 g/dL (6.4-8.2) Albumin 4.1 g/dL (3.4-5.0) Albumin/Globulin Ratio 1.0 (1.0-1.7) Triglycerides Level 87 mg/dL (0-150) Cholesterol Level 154 mg/dL (0-200) LDL Cholesterol, Calculated 93 mg/dL (0-100) VLDL Cholesterol, Calculated 17 mg/dL (0-40) Non-HDL Cholesterol Calculated 110 mg/dL (0-129) HDL Cholesterol 44 mg/dL (40-60) Cholesterol/HDL Ratio 3.5 Ethyl Alcohol Level 340 mg/dL (0-10) Ammonia 64 mcmol/L (11-34) Urine Collection Type Unknown Urine Color Yellow Urine Clarity Clear Urine pH 6.0 (<5.0-8.0) Urine Specific [place] 1.025 (1.000-1.030) Urine Protein Negative mg/dL (NEG-TRACE) Urine Glucose (UA) Negative mg/dL (NEG) Urine Ketones (Stick) Negative mg/dL (NEG) Urine Blood Negative (NEG) Urine Nitrite Negative (NEG) Urine Bilirubin Negative (NEG) Urine Urobilinogen Dipstick 1.0 mg/dL (0.2 mg/dL) Urine Leukocyte Esterase Negative (NEG) Urine RBC 0 /HPF (0-2) Urine WBC 0 /HPF (0-4) Urine Squamous Epithelial Cells Occ /LPF Urine Bacteria 0 /HPF (0-FEW) Urine Hyaline Casts Occasional /HPF Urine Mucus Slight /LPF Urine Opiates Screen Neg (NEG) Urine Methadone Screen Neg (NEG) Urine Barbiturates Neg (NEG) Urine Phencyclidine Screen Neg (NEG) Urine Amphetamine/Methamphetamine Neg (NEG) Urine Benzodiazepines Screen Neg (NEG) Urine Cocaine Screen Neg (NEG) Urine Cannabinoids Screen Neg (NEG) Urine Ethyl Alcohol Pos (NEG) Test 01/21/21 10:25 01/21/21 11:30 01/21/21 13:30 Stool Occult Blood Negative (NEG) Fibrinogen 246 mg/dL (200-440) Troponin I Quantitative < 0.017 ng/mL (0.000-0.055) VTE Prophylaxis Ordered VTE Prophylaxis Devices: No VTE Pharmacological Prophylaxi: No Assessment/Plan Assessment/Plan new right hand weakness, improving small left motor CVA, anemia, Microcytic, check Iron, retic, w/u hypercoag, cannot order Factor V leiden in hospital, will get outpatient, f/u If hgb ok, start lovenox and asa PT and OT and speech obese, BMI 38 anxiety disorder, on cymbalta, reports home ativan Alcohol abuse, acute intox on admit, Justifications for Admission Other Justification AARON MENDENHALL MD Jan 21, 2021 17:41
[2021-01-21] MEDS ORDERED: IRON SUCROSE COMPLEX 200 MG in IV NORMAL SALINE 100ML 100 ML IV ONE (18:00)
[2021-01-21 18:19] LABS: HEMATOCRIT 21.9 % (39.0-53.0); RED BLOOD COUNT 3.07 x10^6/uL (4.30-5.70); RED CELL DISTRIBUTION WIDTH 22.4 % (11.5-14.5); WHITE BLOOD COUNT 3.7 x10^3/uL (4.0-11.0)
[2021-01-21 18:33] LABS: HEMOGLOBIN 6.8 g/dL (13.0-17.5)
[2021-01-21] MEDS ORDERED: DIAZ5TAB4 PO (20:43)
[2021-01-21] MEDS: DULoxetine HCL 20 MG CAPSULE.DR PO SCH (22:56)
[2021-01-22 06:58] LABS: CALCIUM 7.9 mg/dL (8.5-10.1); CREATININE 0.7 mg/dL (0.7-1.3); GFR 115.4; POTASSIUM 3.2 mmol/L (3.5-5.1)
[2021-01-22 07:00] VITALS: BP 135/78
[2021-01-22 07:25] LABS: BASO % 1 % (0-3); EOS % 0 % (0-3); HEMATOCRIT 23.1 % (39.0-53.0); HEMOGLOBIN 7.2 g/dL (13.0-17.5); LYMPH # 1.1 x10^3/uL (1.0-4.8); LYMPH % 26 % (24-48); MEAN CORPUSCULAR HEMOGLOBIN 22 pg (25-35); MEAN CORPUSCULAR HGB CONC 31 g/dL (31-37); MEAN CORPUSCULAR VOLUME 72 fL (79-100); MONO # 0.5 x10^3/uL (0.0-1.1); MONO % 12 % (0-9); NEUT # 2.5 x10^3/uL (1.8-7.7); NEUT % 60 % (31-73); PLATELET COUNT 134 x10^3/uL (140-400); RED BLOOD COUNT 3.21 x10^6/uL (4.30-5.70); RED CELL DISTRIBUTION WIDTH 22.4 % (11.5-14.5); WHITE BLOOD COUNT 4.1 x10^3/uL (4.0-11.0)
[2021-01-22] MEDS: DULoxetine HCL 20 MG CAPSULE.DR PO SCH (08:15)
[2021-01-22] MEDS: ONDANSETRON PF 4 MG/2 ML VIAL. IV PRN (08:19)
[2021-01-22] MEDS ORDERED: DULoxetine HCL 20 MG CAPSULE.DR PO SCH (09:00)
[2021-01-22] MEDS ORDERED: THIAMINE 100 MG TABLET. PO SCH (09:00)
[2021-01-22] MEDS ORDERED: MULTIVITAMIN with MINERAL TABLET. PO SCH (09:00)
[2021-01-22] MEDS ORDERED: FOLIC ACID 1 MG TABLET. PO SCH (09:00)
[2021-01-22] MEDS ORDERED: POTASSIUM CHLORIDE 20 MEQ TABLET.ER. PO ONE (09:30)
[2021-01-22] MEDS ORDERED: FERROUS SULFATE 325 MG TABLET. PO SCH (09:30)
[2021-01-22] MEDS ORDERED: MAGNESIUM SULFATE 2GM 50 ML IV ONE (09:30)
--- NOTE | 2021-01-22 10:11 | NUR ---
SW following. Discussed with RN, pt from home, room air, cardiac diet. Neurology following. GI consulted. PT/OT/ST ordered. Pt got two units of blood last night. PAT consulted for ETOH use/abuse. SW will continue to follow.
--- NOTE | 2021-01-22 10:21 | PDOC ---
PROGRESS NOTES Date of Service DATE: 01/22/21 TIME: 10:16 Assessment Problems Medical Problems: (1) Alcohol intoxication Status: Acute (2) Hyperammonemia Status: Acute (3) Microcytic anemia Status: Acute Left hemispheric stroke, clinically small vessel, but MRI negative Hypertension Severe anemia Alcoholism Plan Hold antiplatelet agents and anticoagulants pending work-up of the anemia Anemia work-up per internal medicine. Keep in mind hematological disorders that can cause strokes Rehabilitation modalities Favorable lipid profile, hold on starting statin, especially since diagnosis of stroke is now doubted Await echocardiogram Aim for discharge as soon as today if no active bleeding Subjective No complaints Objective Vital Signs Date Time Temp Pulse Resp B/P (MAP) Pulse Ox O2 Delivery O2 Flow Rate FiO2 01/22/21 08:22 Room Air 01/22/21 07:00 98.6 90 18 135/78 (97) 97 98.6 01/21/21 16:43 1.5 Intake and Output 01/22/21 07:00 Intake Total 2871 ml Output Total 300 ml Balance 2571 ml Intake Oral 200 ml IV Total 2011 ml Blood Product IV Normal Saline Flush 660 ml Output Urine Total 300 ml PHYSICAL EXAM Alert. Oriented to time, place and person. PERRL. EOMI. CN: no focal findings. Muscle tone: normal. Muscle strength: 5-/5 right hemiparesis DTR: 2+ Plantar reflex: Flexor Gait: Normal. Sensory exam: no abnormal findings. No cerebellar signs elicited. Review of Relevant I have reviewed the following items diamond (where applicable) has been applied. Labs Laboratory Tests Test 01/21/21 08:12 01/21/21 08:20 01/21/21 08:45 01/21/21 09:35 Glucose (Fingerstick) 204 mg/dL (70-99) White Blood Count 4.9 x10^3/uL (4.0-11.0) Red Blood Count 3.10 x10^6/uL (4.30-5.70) Hemoglobin 6.8 g/dL (13.0-17.5) Hematocrit 22.1 % (39.0-53.0) Mean Corpuscular Volume 71 fL (79-100) Mean Corpuscular Hemoglobin 22 pg (25-35) Mean Corpuscular Hemoglobin Concent 31 g/dL (31-37) Red Cell Distribution Width 22.9 % (11.5-14.5) Platelet Count 195 x10^3/uL (140-400) Neutrophils (%) (Auto) 42 % (31-73) Lymphocytes (%) (Auto) 46 % (24-48) Monocytes (%) (Auto) 8 % (0-9) Eosinophils (%) (Auto) 1 % (0-3) Basophils (%) (Auto) 2 % (0-3) Neutrophils # (Auto) 2.1 x10^3/uL (1.8-7.7) Lymphocytes # (Auto) 2.3 x10^3/uL (1.0-4.8) Monocytes # (Auto) 0.4 x10^3/uL (0.0-1.1) Eosinophils # (Auto) 0.1 x10^3/uL (0.0-0.7) Basophils # (Auto) 0.1 x10^3/uL (0.0-0.2) Platelet Estimate Adequate (ADEQUATE) Anisocytosis Slight Prothrombin Time 15.0 SEC (11.7-14.0) Prothromb Time International Ratio 1.2 (0.8-1.1) Activated Partial Thromboplast Time 35 SEC (24-38) Sodium Level 145 mmol/L (136-145) Potassium Level 3.5 mmol/L (3.5-5.1) Chloride Level 105 mmol/L (98-107) Carbon Dioxide Level 26 mmol/L (21-32) Anion Gap 14 (6-14) Blood Urea Nitrogen 4 mg/dL (8-26) Creatinine 0.9 mg/dL (0.7-1.3) Estimated GFR (Cockcroft-Gault) 86.4 BUN/Creatinine Ratio 4 (6-20) Glucose Level 189 mg/dL (70-99) Calcium Level 8.1 mg/dL (8.5-10.1) Phosphorus Level 3.8 mg/dL (2.6-4.7) Magnesium Level 1.8 mg/dL (1.8-2.4) Total Bilirubin 1.2 mg/dL (0.2-1.0) Aspartate Amino Transf (AST/SGOT) 67 U/L (15-37) Alanine Aminotransferase (ALT/SGPT) 43 U/L (16-63) Alkaline Phosphatase 63 U/L (46-116) Troponin I Quantitative < 0.017 ng/mL (0.000-0.055) LC-Wdi-U-Type Natriuretic Peptide 52 pg/mL (0-124) Total Protein 8.1 g/dL (6.4-8.2) Albumin 4.1 g/dL (3.4-5.0) Albumin/Globulin Ratio 1.0 (1.0-1.7) Triglycerides Level 87 mg/dL (0-150) Cholesterol Level 154 mg/dL (0-200) LDL Cholesterol, Calculated 93 mg/dL (0-100) VLDL Cholesterol, Calculated 17 mg/dL (0-40) Non-HDL Cholesterol Calculated 110 mg/dL (0-129) HDL Cholesterol 44 mg/dL (40-60) Cholesterol/HDL Ratio 3.5 Ethyl Alcohol Level 340 mg/dL (0-10) Ammonia 64 mcmol/L (11-34) Urine Collection Type Unknown Urine Color Yellow Urine Clarity Clear Urine pH 6.0 (<5.0-8.0) Urine Specific [place] 1.025 (1.000-1.030) Urine Protein Negative mg/dL (NEG-TRACE) Urine Glucose (UA) Negative mg/dL (NEG) Urine Ketones (Stick) Negative mg/dL (NEG) Urine Blood Negative (NEG) Urine Nitrite Negative (NEG) Urine Bilirubin Negative (NEG) Urine Urobilinogen Dipstick 1.0 mg/dL (0.2 mg/dL) Urine Leukocyte Esterase Negative (NEG) Urine RBC 0 /HPF (0-2) Urine WBC 0 /HPF (0-4) Urine Squamous Epithelial Cells Occ /LPF Urine Bacteria 0 /HPF (0-FEW) Urine Hyaline Casts Occasional /HPF Urine Mucus Slight /LPF Urine Opiates Screen Neg (NEG) Urine Methadone Screen Neg (NEG) Urine Barbiturates Neg (NEG) Urine Phencyclidine Screen Neg (NEG) Urine Amphetamine/Methamphetamine Neg (NEG) Urine Benzodiazepines Screen Neg (NEG) Urine Cocaine Screen Neg (NEG) Urine Cannabinoids Screen Neg (NEG) Urine Ethyl Alcohol Pos (NEG) Test 01/21/21 10:25 01/21/21 11:30 01/21/21 13:30 01/21/21 18:00 Stool Occult Blood Negative (NEG) Fibrinogen 246 mg/dL (200-440) Iron Level 19 ug/dL (65-175) Total Iron Binding Capacity 437 ug/dL (250-450) Iron Saturation 4 % (15-34) Troponin I Quantitative < 0.017 ng/mL (0.000-0.055) White Blood Count 3.7 x10^3/uL (4.0-11.0) Red Blood Count 3.07 x10^6/uL (4.30-5.70) Hemoglobin 6.8 g/dL (13.0-17.5) Hematocrit 21.9 % (39.0-53.0) Mean Corpuscular Volume 71 fL (79-100) Mean Corpuscular Hemoglobin 22 pg (25-35) Mean Corpuscular Hemoglobin Concent 31 g/dL (31-37) Red Cell Distribution Width 22.4 % (11.5-14.5) Platelet Count 150 x10^3/uL (140-400) Erythrocyte Sedimentation Rate 17 (0-15) Absolute Reticulocyte Count 0.042 x10^6/uL (0.020-0.120) Percent Reticulocyte Count 1.4 % (0.5-2.3) Immature Reticulocyte Fraction 0.40 (0.20-0.60) Test 01/22/21 04:10 White Blood Count 4.1 x10^3/uL (4.0-11.0) Red Blood Count 3.21 x10^6/uL (4.30-5.70) Hemoglobin 7.2 g/dL (13.0-17.5) Hematocrit 23.1 % (39.0-53.0) Mean Corpuscular Volume 72 fL (79-100) Mean Corpuscular Hemoglobin 22 pg (25-35) Mean Corpuscular Hemoglobin Concent 31 g/dL (31-37) Red Cell Distribution Width 22.4 % (11.5-14.5) Platelet Count 134 x10^3/uL (140-400) Neutrophils (%) (Auto) 60 % (31-73) Lymphocytes (%) (Auto) 26 % (24-48) Monocytes (%) (Auto) 12 % (0-9) Eosinophils (%) (Auto) 0 % (0-3) Basophils (%) (Auto) 1 % (0-3) Neutrophils # (Auto) 2.5 x10^3/uL (1.8-7.7) Lymphocytes # (Auto) 1.1 x10^3/uL (1.0-4.8) Monocytes # (Auto) 0.5 x10^3/uL (0.0-1.1) Eosinophils # (Auto) 0.0 x10^3/uL (0.0-0.7) Basophils # (Auto) 0.0 x10^3/uL (0.0-0.2) Sodium Level 142 mmol/L (136-145) Potassium Level 3.2 mmol/L (3.5-5.1) Chloride Level 104 mmol/L (98-107) Carbon Dioxide Level 29 mmol/L (21-32) Anion Gap 9 (6-14) Blood Urea Nitrogen 3 mg/dL (8-26) Creatinine 0.7 mg/dL (0.7-1.3) Estimated GFR (Cockcroft-Gault) 115.4 Glucose Level 87 mg/dL (70-99) Calcium Level 7.9 mg/dL (8.5-10.1) Vitamin B12 Level 368 pg/mL (247-911) Thyroid Stimulating Hormone (TSH) 2.336 uIU/mL (0.358-3.74) Laboratory Tests Test 01/21/21 10:25 01/21/21 11:30 01/21/21 13:30 01/21/21 18:00 Stool Occult Blood Negative (NEG) Fibrinogen 246 mg/dL (200-440) Iron Level 19 ug/dL (65-175) Total Iron Binding Capacity 437 ug/dL (250-450) Iron Saturation 4 % (15-34) Troponin I Quantitative < 0.017 ng/mL (0.000-0.055) White Blood Count 3.7 x10^3/uL (4.0-11.0) Red Blood Count 3.07 x10^6/uL (4.30-5.70) Hemoglobin 6.8 g/dL (13.0-17.5) Hematocrit 21.9 % (39.0-53.0) Mean Corpuscular Volume 71 fL (79-100) Mean Corpuscular Hemoglobin 22 pg (25-35) Mean Corpuscular Hemoglobin Concent 31 g/dL (31-37) Red Cell Distribution Width 22.4 % (11.5-14.5) Platelet Count 150 x10^3/uL (140-400) Erythrocyte Sedimentation Rate 17 (0-15) Absolute Reticulocyte Count 0.042 x10^6/uL (0.020-0.120) Percent Reticulocyte Count 1.4 % (0.5-2.3) Immature Reticulocyte Fraction 0.40 (0.20-0.60) Test 01/22/21 04:10 White Blood Count 4.1 x10^3/uL (4.0-11.0) Red Blood Count 3.21 x10^6/uL (4.30-5.70) Hemoglobin 7.2 g/dL (13.0-17.5) Hematocrit 23.1 % (39.0-53.0) Mean Corpuscular Volume 72 fL (79-100) Mean Corpuscular Hemoglobin 22 pg (25-35) Mean Corpuscular Hemoglobin Concent 31 g/dL (31-37) Red Cell Distribution Width 22.4 % (11.5-14.5) Platelet Count 134 x10^3/uL (140-400) Neutrophils (%) (Auto) 60 % (31-73) Lymphocytes (%) (Auto) 26 % (24-48) Monocytes (%) (Auto) 12 % (0-9) Eosinophils (%) (Auto) 0 % (0-3) Basophils (%) (Auto) 1 % (0-3) Neutrophils # (Auto) 2.5 x10^3/uL (1.8-7.7) Lymphocytes # (Auto) 1.1 x10^3/uL (1.0-4.8) Monocytes # (Auto) 0.5 x10^3/uL (0.0-1.1) Eosinophils # (Auto) 0.0 x10^3/uL (0.0-0.7) Basophils # (Auto) 0.0 x10^3/uL (0.0-0.2) Sodium Level 142 mmol/L (136-145) Potassium Level 3.2 mmol/L (3.5-5.1) Chloride Level 104 mmol/L (98-107) Carbon Dioxide Level 29 mmol/L (21-32) Anion Gap 9 (6-14) Blood Urea Nitrogen 3 mg/dL (8-26) Creatinine 0.7 mg/dL (0.7-1.3) Estimated GFR (Cockcroft-Gault) 115.4 Glucose Level 87 mg/dL (70-99) Calcium Level 7.9 mg/dL (8.5-10.1) Vitamin B12 Level 368 pg/mL (247-911) Thyroid Stimulating Hormone (TSH) 2.336 uIU/mL (0.358-3.74) Medications Current Medications Iohexol (Omnipaque 300 Mg/ml) 75 ml 1X ONCE IV ; Start 01/21/21 at 09:00; Stop 01/21/21 at 09:01; Status DC Info (CONTRAST GIVEN -- Rx MONITORING) 1 each PRN DAILY PRN MC SEE COMMENTS; Start 01/21/21 at 09:00; Stop 01/23/21 at 08:59 Multivitamins 10 ml/Thiamine HCl 100 mg/Folic Acid 1 mg/Sodium Chloride 1,011.2 ml @ 1,000.088 mls/hr 1X ONCE IV Last administered on 01/21/21at 10:23; Start 01/21/21 at 10:00; Stop 01/21/21 at 11:00; Status DC Ondansetron HCl (Zofran) 4 mg PRN Q8HRS PRN IV NAUSEA/VOMITING Last administered on 01/22/21at 08:19; Start 01/21/21 at 10:30; Stop 01/22/21 at 10:29 Acetaminophen (Tylenol) 650 mg PRN Q4HRS PRN PO FEVER > 100.3'F; Start 01/21/21 at 10:30; Stop 01/21/21 at 12:14; Status DC Lorazepam (Ativan Inj) 2 mg 1X ONCE IVP ; Start 01/21/21 at 12:15; Stop 01/21/21 at 12:16; Status DC Sodium Chloride 1,000 ml @ 1,000 mls/hr 1X ONCE IV Last administered on 01/21/21at 12:34; Start 01/21/21 at 12:15; Stop 01/21/21 at 13:14; Status DC Multivitamins (Thera M Plus) 1 tab DAILY PO Last administered on 01/22/21at 08:15; Start 01/22/21 at 09:00 Folic Acid (Folic Acid) 1 mg DAILY PO Last administered on 01/22/21at 08:15; Start 01/22/21 at 09:00 Thiamine Mononitrate (Vitamin B-1) 100 mg DAILY PO Last administered on 01/22/21at 08:15; Start 01/22/21 at 09:00 Lorazepam (Ativan) 4 mg PRN Q1HR PRN PO For CIWA 8-14; Start 01/21/21 at 12:15 Lorazepam (Ativan Inj) 2 mg PRN Q1HR PRN IV For CIWA 8-14 Last administered on 01/21/21at 21:07; Start 01/21/21 at 12:15 Acetaminophen (Tylenol) 650 mg PRN Q6HRS PRN PO MILD PAIN / TEMP > 100.3'F; Start 01/21/21 at 12:15 Duloxetine HCl (Cymbalta) 20 mg DAILY PO ; Start 01/22/21 at 09:00; Stop 01/21/21 at 20:46; Status DC Zolpidem Tartrate (Ambien) 5 mg PRN QHS PRN PO INSOMNIA, MAY REPEAT IN 1HR; Start 01/21/21 at 17:30 Lorazepam (Ativan) 1 mg PRN Q6HRS PRN PO ANXIETY / AGITATION; Start 01/21/21 at 17:45 Iron Sucrose 200 mg/Sodium Chloride 110 ml @ 55 mls/hr 1X ONCE IV Last administered on 01/21/21at 17:57; Start 01/21/21 at 18:00; Stop 01/21/21 at 19:59; Status DC Duloxetine HCl (Cymbalta) 20 mg DAILY PO Last administered on 01/22/21at 08:15; Start 01/21/21 at 21:00 Potassium Chloride (Klor-Con) 40 meq 1X ONCE PO Last administered on 01/22/21at 09:36; Start 01/22/21 at 09:30; Stop 01/22/21 at 09:31; Status DC Magnesium Sulfate 50 ml @ 25 mls/hr 1X ONCE IV Last administered on 01/22/21at 09:37; Start 01/22/21 at 09:30; Stop 01/22/21 at 11:29 Ferrous Sulfate (Feosol) 325 mg DAILYWBKFT PO Last administered on 01/22/21at 09:36; Start 01/22/21 at 09:30 Active Scripts Active Reported Diazepam 5 Mg Tablet 5 Mg PO BID PRN Cymbalta (Duloxetine Hcl) 20 Mg Capsule.dr 20 Mg PO DAILY Vitals/I & O Vital Sign - Last 24 Hours 01/21/21 01/21/21 01/21/21 01/21/21 10:18 10:31 10:32 11:00 Temp 98.5 98.5 Pulse 106 102 104 98 Resp 23 16 22 B/P (MAP) 101/72 105/67 (80) 105/67 97/53 (68) Pulse Ox 96 90 O2 Delivery Nasal Cannula Nasal Cannula O2 Flow Rate 1.5 1.5 01/21/21 01/21/21 01/21/21 01/21/21 11:12 11:30 12:00 12:30 Temp 98.6 98.6 Pulse 108 106 104 96 Resp 27 B/P (MAP) 97/53 97/49 (65) 98/47 (64) 87/44 (58) Pulse Ox 93 95 96 O2 Delivery Nasal Cannula Nasal Cannula Nasal Cannula O2 Flow Rate 1.5 1.5 1.5 01/21/21 01/21/21 01/21/21 01/21/21 13:00 13:30 14:00 16:43 Pulse 95 92 98 Resp 25 25 B/P (MAP) 86/45 (59) 92/45 (61) 115/56 (75) Pulse Ox 95 98 97 O2 Delivery Nasal Cannula Nasal Cannula Nasal Cannula Nasal Cannula O2 Flow Rate 1.5 1.5 1.5 1.5 01/21/21 01/21/21 01/21/21 01/21/21 19:00 21:00 22:36 22:45 Temp 98.7 98.0 99.0 98.7 98.0 99.0 Pulse 95 94 95 Resp 18 21 B/P (MAP) 111/50 (70) 124/58 (80) 112/70 Pulse Ox 94 92 O2 Delivery Room Air Room Air Room Air 01/21/21 01/21/21 01/22/21 01/22/21 23:50 23:57 07:00 08:22 Temp 98.6 98.8 98.6 98.6 98.8 98.6 Pulse 93 86 90 Resp 18 B/P (MAP) 119/64 103/47 135/78 (97) Pulse Ox 97 O2 Delivery Room Air Room Air Intake and Output 01/21/21 01/21/21 01/22/21 15:00 23:00 07:00 Intake Total 2671 ml 200 ml Output Total 300 ml Balance 2671 ml 200 ml -300 ml Images Brain MRI without contrast. HISTORY: Cerebral infarction. Right-sided weakness. TECHNIQUE: Multiplanar, multisequence magnetic resonance imaging of the brain was performed without contrast. COMPARISON: 01/21/2021 FINDINGS: There is no restricted diffusion to suggest acute or subacute infarction. There is no susceptibility effect to suggest hemorrhage. There is no mass effect or midline shift. There is no hydrocephalus. No suspicious white matter lesion is seen. The orbits are unremarkable. There are small left maxillary sinus mucous retention cysts. There is mild paranasal sinus because of thickening. The mastoid air cells are clear. There are normal flow voids within the cerebral vessels. There is no suspicious calvarial lesion. IMPRESSION: No acute intracranial finding. Justicifation of Admission Dx: Justifications for Admission: Justification of Admission Dx: N/A Stroke - Ischemic: Stroke-Ischemic NAN HERNANDEZ MD Jan 22, 2021 10:21
--- NOTE | 2021-01-22 10:25 | PDOC3 ---
Discharge Summary Visit Information Date of Admission: Jan 21, 2021 Date of Discharge: Jan 22, 2021 Final Diagnosis clinical Left hemispheric stroke, small vessel on CT, MRI negative Hypertension obesity, BMI 38 Severe anemia, Hgb < 7, no blood product given, Iron deficiency anemnia, Alcoholism Problems Medical Problems: (1) Alcohol intoxication Status: Acute (2) Hyperammonemia Status: Acute (3) Microcytic anemia Status: Acute Brief Hospital Course Allergies Allergies Coded Allergies Type Severity Reaction Last Updated Verified No Known Drug Allergies 12/04/13 No Vital Signs Vital Signs Date Time Temp Pulse Resp B/P (MAP) Pulse Ox O2 Delivery O2 Flow Rate FiO2 01/22/21 08:22 Room Air 01/22/21 07:00 98.6 90 18 135/78 (97) 97 98.6 01/21/21 16:43 1.5 Lab Results Laboratory Tests Test 01/21/21 08:12 01/21/21 08:20 01/21/21 08:45 01/21/21 09:35 Glucose (Fingerstick) 204 mg/dL (70-99) White Blood Count 4.9 x10^3/uL (4.0-11.0) Red Blood Count 3.10 x10^6/uL (4.30-5.70) Hemoglobin 6.8 g/dL (13.0-17.5) Hematocrit 22.1 % (39.0-53.0) Mean Corpuscular Volume 71 fL (79-100) Mean Corpuscular Hemoglobin 22 pg (25-35) Mean Corpuscular Hemoglobin Concent 31 g/dL (31-37) Red Cell Distribution Width 22.9 % (11.5-14.5) Platelet Count 195 x10^3/uL (140-400) Neutrophils (%) (Auto) 42 % (31-73) Lymphocytes (%) (Auto) 46 % (24-48) Monocytes (%) (Auto) 8 % (0-9) Eosinophils (%) (Auto) 1 % (0-3) Basophils (%) (Auto) 2 % (0-3) Neutrophils # (Auto) 2.1 x10^3/uL (1.8-7.7) Lymphocytes # (Auto) 2.3 x10^3/uL (1.0-4.8) Monocytes # (Auto) 0.4 x10^3/uL (0.0-1.1) Eosinophils # (Auto) 0.1 x10^3/uL (0.0-0.7) Basophils # (Auto) 0.1 x10^3/uL (0.0-0.2) Platelet Estimate Adequate (ADEQUATE) Anisocytosis Slight Prothrombin Time 15.0 SEC (11.7-14.0) Prothromb Time International Ratio 1.2 (0.8-1.1) Activated Partial Thromboplast Time 35 SEC (24-38) Sodium Level 145 mmol/L (136-145) Potassium Level 3.5 mmol/L (3.5-5.1) Chloride Level 105 mmol/L (98-107) Carbon Dioxide Level 26 mmol/L (21-32) Anion Gap 14 (6-14) Blood Urea Nitrogen 4 mg/dL (8-26) Creatinine 0.9 mg/dL (0.7-1.3) Estimated GFR (Cockcroft-Gault) 86.4 BUN/Creatinine Ratio 4 (6-20) Glucose Level 189 mg/dL (70-99) Calcium Level 8.1 mg/dL (8.5-10.1) Phosphorus Level 3.8 mg/dL (2.6-4.7) Magnesium Level 1.8 mg/dL (1.8-2.4) Total Bilirubin 1.2 mg/dL (0.2-1.0) Aspartate Amino Transf (AST/SGOT) 67 U/L (15-37) Alanine Aminotransferase (ALT/SGPT) 43 U/L (16-63) Alkaline Phosphatase 63 U/L (46-116) Troponin I Quantitative < 0.017 ng/mL (0.000-0.055) OD-Alv-L-Type Natriuretic Peptide 52 pg/mL (0-124) Total Protein 8.1 g/dL (6.4-8.2) Albumin 4.1 g/dL (3.4-5.0) Albumin/Globulin Ratio 1.0 (1.0-1.7) Triglycerides Level 87 mg/dL (0-150) Cholesterol Level 154 mg/dL (0-200) LDL Cholesterol, Calculated 93 mg/dL (0-100) VLDL Cholesterol, Calculated 17 mg/dL (0-40) Non-HDL Cholesterol Calculated 110 mg/dL (0-129) HDL Cholesterol 44 mg/dL (40-60) Cholesterol/HDL Ratio 3.5 Ethyl Alcohol Level 340 mg/dL (0-10) Ammonia 64 mcmol/L (11-34) Urine Collection Type Unknown Urine Color Yellow Urine Clarity Clear Urine pH 6.0 (<5.0-8.0) Urine Specific [place] 1.025 (1.000-1.030) Urine Protein Negative mg/dL (NEG-TRACE) Urine Glucose (UA) Negative mg/dL (NEG) Urine Ketones (Stick) Negative mg/dL (NEG) Urine Blood Negative (NEG) Urine Nitrite Negative (NEG) Urine Bilirubin Negative (NEG) Urine Urobilinogen Dipstick 1.0 mg/dL (0.2 mg/dL) Urine Leukocyte Esterase Negative (NEG) Urine RBC 0 /HPF (0-2) Urine WBC 0 /HPF (0-4) Urine Squamous Epithelial Cells Occ /LPF Urine Bacteria 0 /HPF (0-FEW) Urine Hyaline Casts Occasional /HPF Urine Mucus Slight /LPF Urine Opiates Screen Neg (NEG) Urine Methadone Screen Neg (NEG) Urine Barbiturates Neg (NEG) Urine Phencyclidine Screen Neg (NEG) Urine Amphetamine/Methamphetamine Neg (NEG) Urine Benzodiazepines Screen Neg (NEG) Urine Cocaine Screen Neg (NEG) Urine Cannabinoids Screen Neg (NEG) Urine Ethyl Alcohol Pos (NEG) Test 01/21/21 10:25 01/21/21 11:30 01/21/21 13:30 01/21/21 18:00 Stool Occult Blood Negative (NEG) Fibrinogen 246 mg/dL (200-440) Iron Level 19 ug/dL (65-175) Total Iron Binding Capacity 437 ug/dL (250-450) Iron Saturation 4 % (15-34) Troponin I Quantitative < 0.017 ng/mL (0.000-0.055) White Blood Count 3.7 x10^3/uL (4.0-11.0) Red Blood Count 3.07 x10^6/uL (4.30-5.70) Hemoglobin 6.8 g/dL (13.0-17.5) Hematocrit 21.9 % (39.0-53.0) Mean Corpuscular Volume 71 fL (79-100) Mean Corpuscular Hemoglobin 22 pg (25-35) Mean Corpuscular Hemoglobin Concent 31 g/dL (31-37) Red Cell Distribution Width 22.4 % (11.5-14.5) Platelet Count 150 x10^3/uL (140-400) Erythrocyte Sedimentation Rate 17 (0-15) Absolute Reticulocyte Count 0.042 x10^6/uL (0.020-0.120) Percent Reticulocyte Count 1.4 % (0.5-2.3) Immature Reticulocyte Fraction 0.40 (0.20-0.60) Test 01/22/21 04:10 White Blood Count 4.1 x10^3/uL (4.0-11.0) Red Blood Count 3.21 x10^6/uL (4.30-5.70) Hemoglobin 7.2 g/dL (13.0-17.5) Hematocrit 23.1 % (39.0-53.0) Mean Corpuscular Volume 72 fL (79-100) Mean Corpuscular Hemoglobin 22 pg (25-35) Mean Corpuscular Hemoglobin Concent 31 g/dL (31-37) Red Cell Distribution Width 22.4 % (11.5-14.5) Platelet Count 134 x10^3/uL (140-400) Neutrophils (%) (Auto) 60 % (31-73) Lymphocytes (%) (Auto) 26 % (24-48) Monocytes (%) (Auto) 12 % (0-9) Eosinophils (%) (Auto) 0 % (0-3) Basophils (%) (Auto) 1 % (0-3) Neutrophils # (Auto) 2.5 x10^3/uL (1.8-7.7) Lymphocytes # (Auto) 1.1 x10^3/uL (1.0-4.8) Monocytes # (Auto) 0.5 x10^3/uL (0.0-1.1) Eosinophils # (Auto) 0.0 x10^3/uL (0.0-0.7) Basophils # (Auto) 0.0 x10^3/uL (0.0-0.2) Sodium Level 142 mmol/L (136-145) Potassium Level 3.2 mmol/L (3.5-5.1) Chloride Level 104 mmol/L (98-107) Carbon Dioxide Level 29 mmol/L (21-32) Anion Gap 9 (6-14) Blood Urea Nitrogen 3 mg/dL (8-26) Creatinine 0.7 mg/dL (0.7-1.3) Estimated GFR (Cockcroft-Gault) 115.4 Glucose Level 87 mg/dL (70-99) Calcium Level 7.9 mg/dL (8.5-10.1) Vitamin B12 Level 368 pg/mL (247-911) Thyroid Stimulating Hormone (TSH) 2.336 uIU/mL (0.358-3.74) Laboratory Tests Test 01/21/21 10:25 01/21/21 11:30 01/21/21 13:30 01/21/21 18:00 Stool Occult Blood Negative (NEG) Fibrinogen 246 mg/dL (200-440) Iron Level 19 ug/dL (65-175) Total Iron Binding Capacity 437 ug/dL (250-450) Iron Saturation 4 % (15-34) Troponin I Quantitative < 0.017 ng/mL (0.000-0.055) White Blood Count 3.7 x10^3/uL (4.0-11.0) Red Blood Count 3.07 x10^6/uL (4.30-5.70) Hemoglobin 6.8 g/dL (13.0-17.5) Hematocrit 21.9 % (39.0-53.0) Mean Corpuscular Volume 71 fL (79-100) Mean Corpuscular Hemoglobin 22 pg (25-35) Mean Corpuscular Hemoglobin Concent 31 g/dL (31-37) Red Cell Distribution Width 22.4 % (11.5-14.5) Platelet Count 150 x10^3/uL (140-400) Erythrocyte Sedimentation Rate 17 (0-15) Absolute Reticulocyte Count 0.042 x10^6/uL (0.020-0.120) Percent Reticulocyte Count 1.4 % (0.5-2.3) Immature Reticulocyte Fraction 0.40 (0.20-0.60) Test 01/22/21 04:10 White Blood Count 4.1 x10^3/uL (4.0-11.0) Red Blood Count 3.21 x10^6/uL (4.30-5.70) Hemoglobin 7.2 g/dL (13.0-17.5) Hematocrit 23.1 % (39.0-53.0) Mean Corpuscular Volume 72 fL (79-100) Mean Corpuscular Hemoglobin 22 pg (25-35) Mean Corpuscular Hemoglobin Concent 31 g/dL (31-37) Red Cell Distribution Width 22.4 % (11.5-14.5) Platelet Count 134 x10^3/uL (140-400) Neutrophils (%) (Auto) 60 % (31-73) Lymphocytes (%) (Auto) 26 % (24-48) Monocytes (%) (Auto) 12 % (0-9) Eosinophils (%) (Auto) 0 % (0-3) Basophils (%) (Auto) 1 % (0-3) Neutrophils # (Auto) 2.5 x10^3/uL (1.8-7.7) Lymphocytes # (Auto) 1.1 x10^3/uL (1.0-4.8) Monocytes # (Auto) 0.5 x10^3/uL (0.0-1.1) Eosinophils # (Auto) 0.0 x10^3/uL (0.0-0.7) Basophils # (Auto) 0.0 x10^3/uL (0.0-0.2) Sodium Level 142 mmol/L (136-145) Potassium Level 3.2 mmol/L (3.5-5.1) Chloride Level 104 mmol/L (98-107) Carbon Dioxide Level 29 mmol/L (21-32) Anion Gap 9 (6-14) Blood Urea Nitrogen 3 mg/dL (8-26) Creatinine 0.7 mg/dL (0.7-1.3) Estimated GFR (Cockcroft-Gault) 115.4 Glucose Level 87 mg/dL (70-99) Calcium Level 7.9 mg/dL (8.5-10.1) Vitamin B12 Level 368 pg/mL (247-911) Thyroid Stimulating Hormone (TSH) 2.336 uIU/mL (0.358-3.74) Brief Hospital Course Mr. Ashton is a 60 old male, admit with right sided weakness, no dysphagia, sudden onset, was acutely intoxicated on presentation, may be nerve impingement from intox. alcohol level 340 on admit, anemic, new, w/u only showed marked iron deficiency. with EtOH abuse GI referral done, Dr. Whittington to schedule outpatient EGD and colonoscopy, Hgb < 7 on admit, 7.2 on DC, IV VEnofer iron given f/u Primary care, Dr. Renteria Discharge Information Condition at Discharge: Improved Follow Up: Weeks Disposition/Orders: D/C to Home Scheduled Duloxetine Hcl (Cymbalta) 20 Mg Capsule., 20 MG PO DAILY for depression, (Reported) Entered as Reported by: STELLA MORTENSEN on 01/21/21 1630 Last Taken: Unknown Dose on 01/20/21 Last Action: Continued on 01/21/211718 by AARON MENDENHALL Ferrous Sulfate (Feosol) 325 Mg Tablet, 325 MG PO [id number] for iron deficiency, #100 Prescribed by: AARON MENDENHALL on 01/22/21 1704 Vitamin B Complex (B Complex) 1 Each Tablet, 1 TAB PO DAILY for anemia for 30 Days, #30 Ref 0 Prescribed by: AARON MENDENHALL on 01/22/21 1704 Scheduled PRN Diazepam (Diazepam) 5 Mg Tablet, 5 MG PO BID PRN for ANXIETY / AGITATION, (Reported) Entered as Reported by: David Ramírez on 01/21/212042 Last Action: New Order on 01/21/212042 by David Ramírez Patient Instructions Patient Instructions > 30 min face to face completed f/u planned Justicifation of Admission Dx: Justifications for Admission: Justification of Admission Dx: N/A Stroke - Ischemic: Stroke-Ischemic AARON MENDENHALL MD Jan 22, 2021 10:25
--- NOTE | 2021-01-22 10:27 | PDOC2 ---
GI CONSULT Date of Service: DATE: 01/22/21 TIME: 10:16 Reason For Consult: iron deficiency anemia HPI: HPI: 60 y/o male admitted w/ right-sided weakness/numbness and lightheadedness, possible stroke. Noted w/ microcytic anemia requiring transfusions which is why we are asked to see. He is unaware of any anemia history before this (and no previous blood transfusions). Had left TKR earlier this year @ [facility]. Denies heartburn/reflux, dysphagia, n/v, abd pain, diarrhea, constipation, hematochezia, melena, and weight loss. Says appetite is "better now." EGD and colonoscopy >5 years ago in [place], [place] reportedly showed hiatal hernia and colon polyp. No GB, liver, pancreas, or PUD history. No NSAIDs. Says plans to DC on ASA 81mg QD. PMH: PMH: HTN, PTSD, depression/anxiety left total knee replacement, umbilical hernia repair, inguinal hernia repair FH: Family History: No pertinent hx (denies GI cancers), CAD, Other (mother - IBS) Social History: Smoke: No ALCOHOL: heavy Drugs: None ROS: GEN: Denies fevers, chills, sweats HEENT: Denies blurred vision, sore throat CV: Denies chest pain RESP: Denies shortness of air, cough GI: Per HPI : Denies hematuria, dysuria ENDO: Denies weight changes NEURO: right hand numbness MSK: Denies weakness, joint pain/swelling SKIN: Denies jaundice, pruritus Vitals: Vitals: Vital Signs Date Time Temp Pulse Resp B/P (MAP) Pulse Ox O2 Delivery O2 Flow Rate FiO2 01/22/21 08:22 Room Air 01/22/21 07:00 98.6 90 18 135/78 (97) 97 98.6 01/21/21 16:43 1.5 Labs: Labs: Laboratory Tests Test 01/21/21 10:25 01/21/21 11:30 01/21/21 13:30 01/21/21 18:00 Stool Occult Blood Negative (NEG) Fibrinogen 246 mg/dL (200-440) Iron Level 19 ug/dL (65-175) Total Iron Binding Capacity 437 ug/dL (250-450) Iron Saturation 4 % (15-34) Troponin I Quantitative < 0.017 ng/mL (0.000-0.055) White Blood Count 3.7 x10^3/uL (4.0-11.0) Red Blood Count 3.07 x10^6/uL (4.30-5.70) Hemoglobin 6.8 g/dL (13.0-17.5) Hematocrit 21.9 % (39.0-53.0) Mean Corpuscular Volume 71 fL (79-100) Mean Corpuscular Hemoglobin 22 pg (25-35) Mean Corpuscular Hemoglobin Concent 31 g/dL (31-37) Red Cell Distribution Width 22.4 % (11.5-14.5) Platelet Count 150 x10^3/uL (140-400) Erythrocyte Sedimentation Rate 17 (0-15) Absolute Reticulocyte Count 0.042 x10^6/uL (0.020-0.120) Percent Reticulocyte Count 1.4 % (0.5-2.3) Immature Reticulocyte Fraction 0.40 (0.20-0.60) Test 01/22/21 04:10 White Blood Count 4.1 x10^3/uL (4.0-11.0) Red Blood Count 3.21 x10^6/uL (4.30-5.70) Hemoglobin 7.2 g/dL (13.0-17.5) Hematocrit 23.1 % (39.0-53.0) Mean Corpuscular Volume 72 fL (79-100) Mean Corpuscular Hemoglobin 22 pg (25-35) Mean Corpuscular Hemoglobin Concent 31 g/dL (31-37) Red Cell Distribution Width 22.4 % (11.5-14.5) Platelet Count 134 x10^3/uL (140-400) Neutrophils (%) (Auto) 60 % (31-73) Lymphocytes (%) (Auto) 26 % (24-48) Monocytes (%) (Auto) 12 % (0-9) Eosinophils (%) (Auto) 0 % (0-3) Basophils (%) (Auto) 1 % (0-3) Neutrophils # (Auto) 2.5 x10^3/uL (1.8-7.7) Lymphocytes # (Auto) 1.1 x10^3/uL (1.0-4.8) Monocytes # (Auto) 0.5 x10^3/uL (0.0-1.1) Eosinophils # (Auto) 0.0 x10^3/uL (0.0-0.7) Basophils # (Auto) 0.0 x10^3/uL (0.0-0.2) Sodium Level 142 mmol/L (136-145) Potassium Level 3.2 mmol/L (3.5-5.1) Chloride Level 104 mmol/L (98-107) Carbon Dioxide Level 29 mmol/L (21-32) Anion Gap 9 (6-14) Blood Urea Nitrogen 3 mg/dL (8-26) Creatinine 0.7 mg/dL (0.7-1.3) Estimated GFR (Cockcroft-Gault) 115.4 Glucose Level 87 mg/dL (70-99) Calcium Level 7.9 mg/dL (8.5-10.1) Vitamin B12 Level 368 pg/mL (247-911) Thyroid Stimulating Hormone (TSH) 2.336 uIU/mL (0.358-3.74) Allergies: Coded Allergies: No Known Drug Allergies (Unverified , 12/04/13) Medications: Current Medications Medications (Trade) Dose Ordered Sig/Bharat Route PRN Reason Start Time Stop Time Status Last Admin Dose Admin Ondansetron HCl (Zofran) 4 mg PRN Q8HRS PRN IV NAUSEA/VOMITING 01/21/21 10:30 01/22/21 10:29 01/22/21 08:19 Sodium Chloride 1,000 ml @ 1,000 mls/hr 1X ONCE IV 01/21/21 12:15 01/21/21 13:14 DC 01/21/21 12:34 Multivitamins (Thera M Plus) 1 tab DAILY PO 01/22/21 09:00 01/22/21 08:15 Folic Acid (Folic Acid) 1 mg DAILY PO 01/22/21 09:00 01/22/21 08:15 Thiamine Mononitrate (Vitamin B-1) 100 mg DAILY PO 01/22/21 09:00 01/22/21 08:15 Lorazepam (Ativan Inj) 2 mg PRN Q1HR PRN IV For CIWA 8-14 01/21/21 12:15 01/21/21 21:07 Iron Sucrose 200 mg/Sodium Chloride 110 ml @ 55 mls/hr 1X ONCE IV 01/21/21 18:00 01/21/21 19:59 DC 01/21/21 17:57 Duloxetine HCl (Cymbalta) 20 mg DAILY PO 01/21/21 21:00 01/22/21 08:15 Potassium Chloride (Klor-Con) 40 meq 1X ONCE PO 01/22/21 09:30 01/22/21 09:31 DC 01/22/21 09:36 Magnesium Sulfate 50 ml @ 25 mls/hr 1X ONCE IV 01/22/21 09:30 01/22/21 11:29 01/22/21 09:37 Ferrous Sulfate (Feosol) 325 mg DAILYWBKFT PO 01/22/21 09:30 01/22/21 09:36 Imaging: Imaging: Brain MRI IMPRESSION: No acute intracranial finding. PE: GEN: NAD HEENT: Atraumatic, PERRL LUNGS: CTAB HEART: RRR ABD: NABS, S/ND/NT EXTREMITY: No edema SKIN: No rashes, no jaundice NEURO/PSYCH: A & O 3 A/P: A/P: ?stroke PARTH, Hemoccult negative H/o hiatal hernia CRC screen, h/o colon polyps - overdue for screening Alcohol overuse Recent left knee replacement -- ?blood loss associated w/ knee surgery ?Jm lesions - reports h/o hiatal hernia. DC per primary and neurology - we will check Hepatitis panel prior to DC. Overdue for screening colonoscopy - can pursue as outpt along w/ EGD for completeness - our office will call to schedule. Encouraged avoidance of alcohol. Okay to continue iron. CHANNING AGUILAR Jan 22, 2021 10:27
[2021-01-22 11:00] VITALS: BP 133/73
[2021-01-22] MEDS ORDERED: FERR325T72 PO (17:04)
[2021-01-22] MEDS ORDERED: VITA1TAB19 PO (17:04)
--- NOTE | 2021-01-22 17:47 | CARD ---
MR#: [id number] Date of Study: 01/22/2021 Ordering Physician: NAN HERNANDEZ, Referring Physician: NAN HERNANDEZ, Tech: oRz Valverde, [facility] APPROVED REPORT EXAM: Two-dimensional and M-mode echocardiogram with Doppler and color Doppler. Other Information Quality : AverageHR: 88bpm INDICATION CVA/TIA Echo Enhancing Agent Indication: Rule Out Septal Defect Agent/Amount Used: Agitated Saline 10mL 2D DIMENSIONS RVDd3.9 (2.9-3.5cm)Left Atrium(2D)3.6 (1.6-4.0cm) IVSd1.0 (0.7-1.1cm)Aortic Root(2D)3.7 (2.0-3.7cm) LVDd6.0 (3.9-5.9cm)LVOT Diameter2.1 (1.8-2.4cm) PWd1.1 (0.7-1.1cm)LVDs3.8 (2.5-4.0cm) FS (%) 36.3 %SV116.3 ml LVEF(%)65.1 (>50%) Aortic Valve AoV Peak Gianfranco.205.1cm/sAoV VTI40.3cm AO Peak GR.16.8mmHgLVOT Peak Gianfranco.140.6cm/s LVOT VTI 33.53cmAO Mean GR.9mmHg KINZA (VMAX)1.95at4USD (VTI)2.83cm2 Mitral Valve MV E Zcsegnfy297.1cm/sMV DECEL [id number] MV A Uamnsafm54.2cm/sMV VLR48qh E/A Ratio1.1MVA (PHT)4.19cm2 TDI E/Lateral E'6.5E/Medial E'12.2 Pulmonary Valve PV Peak Qbmodmte441.0cm/sPV Peak Grad.7mmHg Tricuspid Valve TR P. [id number]/sRAP [id number] TR Peak Gr.95fiVcTYMR80hzUn Pulmonary Vein S1 Gqurysgg695.8cm/sD2 Afiuvtbg28.3cm/s PVa [id number] LEFT VENTRICLE The left ventricle is normal size. There is normal left ventricular wall thickness. The left ventricu lar systolic function is normal. The Ejection Fraction is 55%. There is normal LV segmental wall guillermo on. RIGHT VENTRICLE The right ventricle is normal size. There is normal right ventricular wall thickness. The right ventr icular systolic function is normal. ATRIA The left atrium size is normal. The right atrium size is normal. The interatrial septum is intact wit h no evidence for an atrial septal defect or patent foramen ovale as noted on 2-D or Doppler imaging. Bubble study appears negative. AORTIC VALVE The aortic valve is normal in structure and function. Doppler and Color Flow revealed no significant aortic regurgitation. There is no significant aortic valvular stenosis. Calculated aortic valve area is 2.49 cm2 with maximum pressure gradient of 20 mmHg and mean pressure gradient of 10 mmHg. MITRAL VALVE The mitral valve is normal in structure and function. There is no evidence of mitral valve prolapse. There is no mitral valve stenosis. Doppler and Color-flow revealed trace mitral regurgitation. TRICUSPID VALVE The tricuspid valve is normal in structure and function. Doppler and Color Flow revealed trace tricus pid regurgitation with an estimated PAP of 41 mmHg. There is no tricuspid valve stenosis. PULMONIC VALVE The pulmonic valve is not well visualized. Doppler and Color Flow revealed no pulmonic valvular regur gitation. GREAT VESSELS The aortic root is normal in size. The ascending aorta is normal in size. The IVC is normal in size a nd collapses >50% with inspiration. PERICARDIAL EFFUSION There is no evidence of significant pericardial effusion. Critical Notification Critical Value: No <Conclusion> The left ventricular systolic function is normal. The Ejection Fraction is 55%. There is normal LV segmental wall motion. Trace mitral regurgitation. Trace tricuspid regurgitation with an estimated PAP of 41 mmHg. There is no evidence of significant pericardial effusion. Bubble study negative for interatrial shunt. Signed by : Ha Boyd, Electronically Approved : 01/22/2021 17:47:31
--- NOTE | 2021-01-22 19:17 | NUR ---
Discharge Note: KT SANCHEZ [address] Discharge instructions and discharge home medications reviewed with Patient and a copy given. All questions have been answered and understanding verbalized. The following instructions and handouts were given: follow up instructions, medication education for prescriptions sent electronically to pharmacy. Discontinued lines and drains: 18 guage right AC, 20 guage left AC, tip intact. patient tolerated well. Patient discharged to home with self care via significant other.
== END 2021-01-22 19:21 | disposition home or self-care (01) | DRG 812 ==
LOC: ER 08:05 → ED HOLD 09:39 → 6 SOUTH 12:48
PROVIDERS: ADMIT Internal Medicine; ATTEND Internal Medicine
PROC: 30233N1 Transfusion of Nonautologous Red Blood Cells into Peripheral Vein, Percutaneous Approach (ICD-10-PCS; principal; 2021-01-21)
DX: D50.9 Iron deficiency anemia, unspecified (principal); E72.20 Disorder of urea cycle metabolism, unspecified; E66.9 Obesity, unspecified; F32.9 Major depressive disorder, single episode, unspecified; F43.10 Post-traumatic stress disorder, unspecified; I10 Essential (primary) hypertension; Z96.652 Presence of left artificial knee joint; F10.120 Alcohol abuse with intoxication, uncomplicated; Y90.8 Blood alcohol level of 240 mg/100 ml or more; Z82.49 Family history of ischemic heart disease and other diseases of the circulatory system; Z87.19 Personal history of other diseases of the digestive system; Z68.37 Body mass index [BMI] 37.0-37.9, adult
CPT/HCPCS: 36415; 36430; 70450; 70496; 70498; 70551; 80048; 80053; 80061; 80307; 81001; 82140; 82274; 82607; 82962; 83010; 83540; 83550; 83735; 83880; 84100; 84443; 84484; 85025; 85027; 85045; 85302; 85305; 85384; 85610; 85651; 85730; 86705; 86709; 86803; 86850; 86900; 86901; 86920; 87340; 93005; 93306; 96361; 96365; G0480; J1756; J2060; J2405; J3411; J3475; J3490; J7030; P9016; 92610-GN; 99285-25; G0378